=== PATIENT | male | born 1955 | race Caucasian/White ===

== ENCOUNTER → 2016-12-20 | Outpatient (REF) | payer OTHER ==
[2016-12-21 06:17] LABS: MEAN CORPUSCULAR HEMOGLOBIN 32.1 pg (27.0-33.0); MEAN CORPUSCULAR HGB CONC 34.7 g/dl (32.0-36.5); MEAN CORPUSCULAR VOLUME 92.7 fl (80.0-96.0); RED CELL DISTRIBUTION WIDTH 12.8 % (11.5-14.5); WHITE BLOOD COUNT 5.2 K/mm3 (4.0-10.0)
== END ==
LOC: M LAB REF 16:19
PROVIDERS: ATTEND Internal Medicine Medical Oncology
DX: D69.6 Thrombocytopenia, unspecified (principal); C95.90 Leukemia, unspecified not having achieved remission

== ENCOUNTER → 2017-01-09 | Outpatient (CLI) | payer BC, OTHER ==
--- NOTE | 2017-01-09 09:02 | REP ---
Complete abdominal sonography: History: Thrombocytopenia. Question hepatosplenomegaly. No comparison abdominal imaging. Findings: Scanning through right upper quadrant of the abdomen demonstrates poor insonation and increased echogenicity in a mildly prominent size liver consistent with fatty infiltration. The craniocaudal span of the liver is 16.6 cm in the mid clavicular line which is at the upper range of normal. No focal liver lesion is seen. Common bile duct is normal measuring 0.3 cm in greatest diameter. The gallbladder shows no evidence of stone , polyp or sludge. The pancreas is obscured by abdominal gas. No free fluid is seen. A normal caliber aorta is seen measuring 2.5 cm in AP dimension. Scanning of the left upper quadrant of the abdomen demonstrates homogeneous spleen measuring 11.9 x 4.6 x 11.5 cm. This is at the upper range of normal as well. No focal splenic lesion is seen. Renal cortical echogenicity pattern is normal and renal contours are smooth. No mass, cyst or calculus is seen on either side. The right kidney measures 11.1 x 6.5 x 4.2 cm. Left renal dimensions are 11.3 x 5.8 x 5.2 cm. Impression: Borderline liver and spleen size. Diffuse fatty infiltration of the liver. Otherwise negative. Signed by Maik Diamond MD 01/09/2017 12:16 P
== END ==
LOC: M RAD 07:26
PROVIDERS: ATTEND Internal Medicine Medical Oncology
DX: D69.6 Thrombocytopenia, unspecified (principal); K76.0 Fatty (change of) liver, not elsewhere classified; R16.0 Hepatomegaly, not elsewhere classified

== ENCOUNTER → 2017-07-26 | Outpatient (REF) | payer OTHER | LOC: M SFHCCLAY 08:07 | PROVIDERS: ATTEND Family Medicine | DX: N40.1 Benign prostatic hyperplasia with lower urinary tract symptoms (principal); E78.5 Hyperlipidemia, unspecified; Z53.9 Procedure and treatment not carried out, unspecified reason ==

== ENCOUNTER → 2017-08-23 | Outpatient (REF) | payer OTHER ==
[2017-08-23 12:12] LABS: ALBUMIN 3.9 GM/DL (3.2-5.2); ALBUMIN/GLOBULIN RATIO 1.34 (1.00-1.93); ALKALINE PHOSPHATASE 74 U/L (45-117); ALT/SGPT 38 U/L (12-78); ANION GAP 7 MEQ/L (8-16); AST/SGOT 20 U/L (15-37); BILIRUBIN,TOTAL 0.6 MG/DL (0.2-1.0); BLOOD UREA NITROGEN 19 MG/DL (7-18); CALCIUM LEVEL 8.5 MG/DL (8.8-10.2); CARBON DIOXIDE LEVEL 29 MEQ/L (21-32); CHLORIDE LEVEL 105 MEQ/L (98-107); CHOLESTEROL LEVEL 185 MG/DL (<200); CREATININE FOR GFR 0.94 MG/DL (0.70-1.30); GLOMERULAR FILTRATION RATE > 60.0 (>49); GLUCOSE, FASTING 113 MG/DL (80-110); POTASSIUM SERUM 4.3 MEQ/L (3.5-5.1); SODIUM LEVEL 141 MEQ/L (136-145); TOTAL PROTEIN 6.8 GM/DL (6.4-8.2); TRIGLYCERIDES LEVEL 90 MG/DL (<150)
== END ==
LOC: M SFHCCLAY 06:58
PROVIDERS: ATTEND Family Medicine
DX: N40.1 Benign prostatic hyperplasia with lower urinary tract symptoms (principal); E78.5 Hyperlipidemia, unspecified

== ENCOUNTER → 2017-09-12 | Outpatient (CLI) | payer BC, OTHER ==
--- NOTE | 2017-09-15 22:16 | SLEEPCENT ---
DATE OF PROCEDURE: 09/12/2017 REFERRING PHYSICIAN: Felecia Olmedo Nocturnal polysomnography was performed for evaluation of sleep physiology in this patient with a history of excessive somnolence and nonrestorative sleep. 6 hours and 27 minutes of data were reviewed. There were 316 minutes of sleep identified. Sleep latency was normal at 11 minutes. Rapid eye movement (REM) latency was short at 46 minutes. Sleep architecture was fair with four REM periods appreciated. Overall sleep efficiency was 84%. The patient's electrocardiogram showed a sinus rhythm with an average heart rate of 64 beats per minute. Rate variability was seen surrounding respiratory events which ranged 50 to 80 beats per minute. EEG showed normal waveforms for awake and sleep. There were 120 respiratory events identified of 10 seconds in duration or greater for an apnea/hypopnea index of 22.7. The events were primarily obstructive, not exclusive to sleep stage nor body posture. Arousals from respiratory events occurred 11.2 times per hour and oxygen desaturations were seen into the 70s. There was some activity in the limb EMG, but limb movement arousals occurred only 4.4 times per hour. IMPRESSION: Obstructive sleep apnea syndrome (G47.33). Apnea/hypopnea index 22.7. Desaturations into the 70s. RECOMMENDATION: The patient should be encouraged to return to the sleep disorder center for pressure therapy. In the interim, alcohol and sedative avoidance should be practiced and caution exercised during the operation of motor vehicles.
== END ==
LOC: M SLEEP 19:36
PROVIDERS: ATTEND Nurse Practitioner Adult Health
DX: G47.30 Sleep apnea, unspecified (principal)

== ENCOUNTER → 2017-10-02 | Outpatient (CLI) | payer BC, OTHER | LOC: M LAB 14:42 | PROVIDERS: ATTEND Ophthalmology | DX: H02.831 Dermatochalasis of right upper eyelid (principal) ==

== ENCOUNTER → 2017-10-16 | Outpatient (CLI) | payer BC, OTHER ==
--- NOTE | 2017-10-19 21:55 | SLEEPCENT ---
DATE: 10/16/2017 ORDERING PROVIDER: Felecia Olmedo NP Nocturnal polysomnography was performed for the titration of pressure therapy in this patient with obstructive sleep apnea syndrome. Apnea-hypopnea index of 22. For testing a ResMed Quattro Air Fit N20 nasal mask of medium size was used. 4 cm of water pressure were initially applied to the circuit and the lights were extinguished. 6 hours and 9 minutes of data were reviewed. There were 204 minutes of sleep identified. Sleep latency was prolonged at 18 minutes. Rapid eye movement (REM) latency was short at 44 minutes. Sleep architecture improved with the application of pressure therapy. Overall sleep efficiency was 56%. Patient's EKG showed a sinus rhythm with an average heart rate of 68 beats per minute. EEG showed fairly normal wave forms for wake and sleep. Respiratory events were fairly well palliated with CPAP at a pressure of +7, however some hypoventilatory oxygen desaturations were seen late in the study with saturations falling at the upper 80s. Patient woke shortly after 3 am and was unable to resume sleep limiting the time of testing. IMPRESSION: Obstructive sleep apnea syndrome (G47.33). RECOMMENDATIONS: Nightly use of pressure therapy 7 cm of water would be reasonable. Followup with nocturnal oximetry should also be considered given the desaturations on that pressure later in the study as the patient may require supplemental oxygen in addition to pressure therapy.
== END ==
LOC: M SLEEP 19:47
PROVIDERS: ATTEND Nurse Practitioner Adult Health
DX: G47.33 Obstructive sleep apnea (adult) (pediatric) (principal)

== ENCOUNTER → 2018-01-10 | Outpatient (REF) | payer OTHER ==
[2018-01-10 11:35] LABS: HEMATOCRIT 44.8 % (42.0-52.0); HEMOGLOBIN 14.8 g/dl (14.0-18.0); MEAN CORPUSCULAR HEMOGLOBIN 31.2 pg (27.0-33.0); MEAN CORPUSCULAR VOLUME 94.5 fl (80.0-96.0); PLATELET COUNT, AUTOMATED 105 10^3/uL (150-450); RED BLOOD COUNT 4.74 10^6/uL (4.30-6.10); RED CELL DISTRIBUTION WIDTH 12.9 % (11.5-14.5); WHITE BLOOD COUNT 6.3 10^3/uL (4.0-10.0)
[2018-01-10 12:12] LABS: ALBUMIN 3.8 GM/DL (3.2-5.2); ALBUMIN/GLOBULIN RATIO 1.31 (1.00-1.93); ALKALINE PHOSPHATASE 64 U/L (45-117); ALT/SGPT 37 U/L (12-78); ANION GAP 4 MEQ/L (8-16); AST/SGOT 18 U/L (7-37); BILIRUBIN,TOTAL 0.4 MG/DL (0.2-1.0); BLOOD UREA NITROGEN 20 MG/DL (7-18); CALCIUM LEVEL 8.4 MG/DL (8.8-10.2); CARBON DIOXIDE LEVEL 30 MEQ/L (21-32); CHLORIDE LEVEL 109 MEQ/L (98-107); CHOLESTEROL LEVEL 159 MG/DL (<200); CHOLESTEROL RISK RATIO 3.456 (<5); CREATININE FOR GFR 0.91 MG/DL (0.70-1.30); GLOMERULAR FILTRATION RATE > 60.0 (>49); GLUCOSE, FASTING 106 MG/DL (70-100); HDL CHOLESTEROL 46 MG/DL (>40); LDL CHOLESTEROL 95.6 MG/DL (<100); NON-HDL-C 113 MG/DL; POTASSIUM SERUM 4.2 MEQ/L (3.5-5.1); SODIUM LEVEL 143 MEQ/L (136-145); TOTAL PROTEIN 6.7 GM/DL (6.4-8.2); TRIGLYCERIDES LEVEL 87 MG/DL (<150)
== END ==
LOC: M SFHCCLAY 07:14
DX: E78.00 Pure hypercholesterolemia, unspecified (principal); K21.9 Gastro-esophageal reflux disease without esophagitis; E78.5 Hyperlipidemia, unspecified; N40.1 Benign prostatic hyperplasia with lower urinary tract symptoms

== ENCOUNTER → 2018-02-16 | Outpatient (CLI) | payer BC, OTHER | LOC: M EKG 10:46 | DX: Z01.810 Encounter for preprocedural cardiovascular examination (principal); M72.0 Palmar fascial fibromatosis [Dupuytren] ==

== ENCOUNTER → 2018-09-11 | Outpatient (CLI) | payer MEDICARE, BC | LOC: M CLY 14:36 | DX: M19.071 Primary osteoarthritis, right ankle and foot (principal); M25.774 Osteophyte, right foot; M85.871 Other specified disorders of bone density and structure, right ankle and foot; M72.2 Plantar fascial fibromatosis | CPT/HCPCS: 73630; G0463 ==

== ENCOUNTER → 2019-01-07 | Outpatient (REF) | payer MEDICARE, OTHER ==
[2019-01-07 12:08] LABS: ALBUMIN 3.7 GM/DL (3.2-5.2); ALT/SGPT 40 U/L (12-78); BILIRUBIN,TOTAL 0.5 MG/DL (0.2-1.0); BLOOD UREA NITROGEN 20 MG/DL (7-18); CALCIUM LEVEL 8.4 MG/DL (8.8-10.2); CARBON DIOXIDE LEVEL 30 MEQ/L (21-32); CHLORIDE LEVEL 105 MEQ/L (98-107); CHOLESTEROL LEVEL 154 MG/DL (<200); CHOLESTEROL RISK RATIO 3.666 (<5); CREATININE FOR GFR 0.99 MG/DL (0.70-1.30); GLOMERULAR FILTRATION RATE > 60.0 (>49); GLUCOSE, FASTING 113 MG/DL (70-100); HDL CHOLESTEROL 42 MG/DL (>40); LDL CHOLESTEROL 94 MG/DL (<100); NON-HDL-C 112 MG/DL; POTASSIUM SERUM 4.2 MEQ/L (3.5-5.1); SODIUM LEVEL 141 MEQ/L (136-145); TOTAL PROTEIN 6.6 GM/DL (6.4-8.2); TRIGLYCERIDES LEVEL 92 MG/DL (<150)
== END ==
LOC: M SFHCCLAY 07:21
PROVIDERS: ATTEND Family Medicine
DX: E78.5 Hyperlipidemia, unspecified (principal)

== ENCOUNTER → 2019-08-16 | Outpatient (REF) | payer MEDICARE, OTHER ==
[~2019-08-16] MED LIST: ASPI81TA26 PO; BUPR300T34 PO; OCUVTAB PO; OMEP40CA97 PO; PRAV40TA2 PO; SERT50TA29 PO; SILD100T PO; VITA100067 PO
[2019-08-16 11:48] LABS: ALBUMIN 3.8 GM/DL (3.2-5.2); ALT/SGPT 28 U/L (12-78); BILIRUBIN,TOTAL 0.8 MG/DL (0.2-1.0); BLOOD UREA NITROGEN 15 MG/DL (7-18); CALCIUM LEVEL 8.3 MG/DL (8.8-10.2); CARBON DIOXIDE LEVEL 30 MEQ/L (21-32); CHLORIDE LEVEL 107 MEQ/L (98-107); CHOLESTEROL LEVEL 143 MG/DL (<200); CHOLESTEROL RISK RATIO 3.177 (<5); GLOMERULAR FILTRATION RATE > 60.0 (>49); GLUCOSE, FASTING 101 MG/DL (70-100); HDL CHOLESTEROL 45 MG/DL (>40); LDL CHOLESTEROL 83 MG/DL (<100); NON-HDL-C 98 MG/DL; POTASSIUM SERUM 4.3 MEQ/L (3.5-5.1); SODIUM LEVEL 141 MEQ/L (136-145); TOTAL PROTEIN 6.6 GM/DL (6.4-8.2); TRIGLYCERIDES LEVEL 74 MG/DL (<150)
== END ==
LOC: M SFHCCLAY 06:58
PROVIDERS: ATTEND Family Medicine
DX: E78.5 Hyperlipidemia, unspecified (principal); Z12.5 Encounter for screening for malignant neoplasm of prostate
CPT/HCPCS: 80053; 80061; G0103

== ENCOUNTER 2019-10-21 08:35 | Emergency (ER) | payer MEDICARE, BC, OTHER ==
[~2019-10-21] VITALS: Ht 172.7 cm; Wt 101.8 kg
[2019-10-21] MEDS ORDERED: ASPIRIN 81 MG CHEW TABLET PO ONE (08:45)
[2019-10-21 09:14] LABS: BASO # 0.1 10^3/uL (0.0-0.2); BASO % 0.8 % (0.0-1.0); EOS # 0.2 10^3/uL (0.0-0.5); EOS % 2.4 % (0.0-3.0); HEMOGLOBIN 14.9 g/dl (13.5-17.5); LYMPH # 0.8 10^3/uL (1.5-5.0); LYMPH % 13.1 % (24.0-44.0); MEAN CORPUSCULAR HEMOGLOBIN 31.5 pg (27.0-33.0); MEAN CORPUSCULAR HGB CONC 32.4 g/dl (32.0-36.5); MEAN CORPUSCULAR VOLUME 97.3 fl (80.0-96.0); MONO # 0.6 10^3/uL (0.0-0.8); MONO % 9.1 % (0.0-5.0); NEUTROPHILS # 4.7 10^3/uL (1.5-8.5); NEUTROPHILS % 73.3 % (36.0-66.0); PLATELET COUNT, AUTOMATED 108 10^3/uL (150-450); RED BLOOD COUNT 4.73 10^6/uL (4.30-6.10); WHITE BLOOD COUNT 6.3 10^3/uL (4.0-10.0)
[2019-10-21] MEDS ORDERED: SERT-138 (09:15)
--- NOTE | 2019-10-21 09:16 | REP ---
Clinical: Chest pain . Comparison: None . Findings: The mediastinum and cardiac silhouette are stable and within normal limits for portable technique. The lung david are clear without acute consolidation, effusion, or pneumothorax. Skeletal structures are intact. Impression: No acute cardiopulmonary process appreciated. Electronically Signed by Robin Dorantes MD 10/21/2019 09:07 A
[2019-10-21] MEDS ORDERED: TRIA1CR80 TOP (09:19)
[2019-10-21] MEDS ORDERED: TAMS1CAP17 (09:19)
[2019-10-21] MEDS ORDERED: NAPR220C14 PO (09:19)
[2019-10-21] MEDS ORDERED: ISOVUE-370 76% 100ML VIAL (Q9967) As Ordered ONE (09:20)
[2019-10-21] MEDS ORDERED: ICAPTAB PO (09:20)
[2019-10-21 09:25] LABS: INR 1.05; PROTHROMBIN TIME 13.4 SECONDS (11.8-14.0)
[2019-10-21 09:49] LABS: ALBUMIN 3.6 GM/DL (3.2-5.2); ALT/SGPT 28 U/L (12-78); BILIRUBIN,DIRECT 0.2 MG/DL (0.0-0.2); BILIRUBIN,TOTAL 0.6 MG/DL (0.2-1.0); BLOOD UREA NITROGEN 19 MG/DL (7-18); CALCIUM LEVEL 8.6 MG/DL (8.8-10.2); CARBON DIOXIDE LEVEL 27 MEQ/L (21-32); CHLORIDE LEVEL 110 MEQ/L (98-107); CK-MB VALUE MASS 2.7 NG/ML (<3.6); CPK CREATINE PHOSPHOKINASE 137 U/L (39-308); CREATININE FOR GFR 0.98 MG/DL (0.70-1.30); FREE T4 0.79 NG/DL (0.76-1.46); GLOMERULAR FILTRATION RATE > 60.0 (>49); GLUCOSE, FASTING 103 MG/DL (70-100); LIPASE 53 U/L (73-393); MB/CK RELATIVE INDEX 1.97 (< OR =4); SODIUM LEVEL 142 MEQ/L (136-145); THYROID STIMULATING HORMONE 0.992 uIU/ML (0.358-3.740); TOTAL PROTEIN 6.8 GM/DL (6.4-8.2); TROPONIN I < 0.02 NG/ML (< 0.10)
--- NOTE | 2019-10-21 09:57 | REP ---
Clinical: Acute chest pain. Technique: Axial contrast enhanced images from the thoracic inlet to the upper abdomen using 100 ml Isovue 370 intravenous contrast material with coronal and sagittal re-formations. Findings: Satisfactory enhancement of the pulmonary vasculature is achieved and no filling defects are identified to suggest pulmonary embolus. Thoracic aorta is normal caliber without aneurysm or dissection. Heart and pericardium are normal. Incidental atherosclerotic changes to the thoracic aorta and coronary arteries noted. Bilateral lung david are well aerated and clear without acute pulmonary parenchymal consolidation or atelectasis. No nodule or mass lesion. No pleural effusion/reaction. No pneumothorax. No adenopathy. Impression: No evidence for pulmonary embolus. No acute pleuroparenchymal or mediastinal process. Electronically Signed by Robin Dorantes MD 10/21/2019 09:48 A
[2019-10-21] MEDS ORDERED: HEPARIN DRIP 25,000 UNITS in IV 1 EA IV SCH (10:35)
[2019-10-21] MEDS ORDERED: HEPARIN SOD (PORCINE) 5000 UNITS/ML VIAL IV ONE (10:45)
[2019-10-21] MEDS ORDERED: CLOPIDOGREL 300 MG TAB (PLAVIX) PO ONE (11:00)
[2019-10-21 11:40] VITALS: BP 122/63
--- NOTE | 2019-10-21 19:37 | ECGEPIP ---
[facility] - ED Test Date: 2019-10-21 Pat Name: LISA DUFFY Department: Room: - Gender: Male Geriatric Case Manager: : 1955 Requested By: Jacey Burgos Order Number: [id number] Reading MD: Enoc Fernandez Measurements Intervals [place] Rate: 63 P: 60 UT: 120 QRS: 48 QRSD: 81 T: 35 QT: 396 QTc: 406 Interpretive Statements SINUS RHYTHM WITH OCCASIONAL VENTRICULAR PREMATURE COMPLEXES POSSIBLE LEFT ATRIAL ENLARGEMENT BASELINE ARTIFACT AFFECTS INTERPRETATION SIMILAR TO 02/16/18 Electronically Signed on 10-21-2019 19:37:49 EST by Enoc Fernandez
== END 2019-10-21 11:45 | disposition short-term general hospital (02) ==
LOC: M ED 08:35 → EDBD 08:35 → M ED 11:45
DX: I20.0 Unstable angina (principal); E78.5 Hyperlipidemia, unspecified; Z79.899 Other long term (current) drug therapy; Z79.82 Long term (current) use of aspirin; Z88.5 Allergy status to narcotic agent; Z88.8 Allergy status to other drugs, medicaments and biological substances; Z87.891 Personal history of nicotine dependence
CPT/HCPCS: 71045; 71275; 80047; 80048; 80076; 82550; 82553; 83690; 84439; 84443; 84484; 85025; 85610; 85730; 93005; 93041; 94760; 96374; 99285; Q9967

== ENCOUNTER → 2019-11-07 | Outpatient (CLI) | payer MEDICARE, BC, OTHER ==
[~2019-11-07] MED LIST changes: -BUPR300T34 PO; +BUPR300T92 PO; +E-Z-GAS II EFFERVESCENT PACKET (SODIUM BICARB./CITRIC ACID/SIMETHICONE) As Ordered ONE; +E-Z-HD 98% w/w 340GM SUSP BTL As Ordered ONE; +E-Z-PAQUE 96% w/w SUSP 176GM BTL As Ordered ONE; +ICAPTAB PO; +NAPR220C14 PO; +SERT-138; +TAMS1CAP17; +TRIA1CR80 TOP
--- NOTE | 2019-11-07 18:38 | REP ---
Upper GI air contrast The procedure was performed under the direct supervision of Dr. Diamond. The images were reviewed with Dr. Diamond The complaint specialist film shows no organomegaly or pathological masses. The intestinal gas pattern is non-specific. Liquid barium and gas producing crystals were given in the erect position as well as liquid barium in the prone oblique position in order to perform a double contrast upper GI examination. The oral and pharyngeal stages of deglutition are unremarkable. Esophageal transport is prompt and efficient and there is no esophagitis, stricture, mucosal ring or hiatal hernia. There is gastroesophageal reflux demonstrated to above the level of the clarence. The stomach padilla are normally outlined . The rugal folds are smooth and regular. There is no gastritis neoplasm or ulcer disease. The duodenal padilla are normally outlined . The mucosal folds are smooth and regular. There is no duodenitis pancreatitis peptic ulcer disease or neoplasm. The visualized portion of the proximal small bowel appears normal in course and caliber. Impression: There is gastroesophageal reflux demonstrated to above the level of the clarence. Otherwise, unremarkable double contrast upper GI examination. 2 minutes of fluoro time was utilized for this procedure. Electronically Signed by BARBARA Saab 11/07/2019 05:51 P Electronically Signed by Maik Diamond MD 11/07/2019 06:26 P
== END ==
LOC: M RAD 09:49
PROVIDERS: ATTEND Family Medicine
DX: R07.9 Chest pain, unspecified (principal)

== ENCOUNTER → 2019-11-25 | Outpatient (CLI) | payer MEDICARE, BC, OTHER ==
[~2019-11-25] MED LIST changes: -E-Z-GAS II EFFERVESCENT PACKET (SODIUM BICARB./CITRIC ACID/SIMETHICONE) As Ordered ONE; -E-Z-HD 98% w/w 340GM SUSP BTL As Ordered ONE; -E-Z-PAQUE 96% w/w SUSP 176GM BTL As Ordered ONE
[2019-11-27 14:07] LABS: PSA % FREE 18.4 % (.); PSA FREE 0.92 ng/mL
== END ==
LOC: M PLALAB 15:05
PROVIDERS: ATTEND Nurse Practitioner Women's Health
DX: R97.20 Elevated prostate specific antigen [PSA] (principal)
CPT/HCPCS: 36415; 51798; 84154; G0463

== ENCOUNTER → 2019-12-03 | Outpatient (REF) | payer MEDICARE, OTHER ==
[2019-12-03 12:50] LABS: BASO % 0.7 % (0.0-1.0); EOS # 0.2 10^3/uL (0.0-0.5); EOS % 3.2 % (0.0-3.0); HEMATOCRIT 44.8 % (42.0-52.0); HEMOGLOBIN 14.7 g/dl (13.5-17.5); LYMPH # 1.1 10^3/uL (1.5-5.0); LYMPH % 18.3 % (24.0-44.0); MEAN CORPUSCULAR HGB CONC 32.8 g/dl (32.0-36.5); MEAN CORPUSCULAR VOLUME 97.4 fl (80.0-96.0); MONO # 0.6 10^3/uL (0.0-0.8); MONO % 9.7 % (0.0-5.0); NEUTROPHILS # 3.9 10^3/uL (1.5-8.5); NEUTROPHILS % 66.7 % (36.0-66.0); PLATELET COUNT, AUTOMATED 116 10^3/uL (150-450); WHITE BLOOD COUNT 5.9 10^3/uL (4.0-10.0)
[2019-12-03 13:20] LABS: ALBUMIN 3.9 GM/DL (3.2-5.2); ALT/SGPT 24 U/L (12-78); BILIRUBIN,TOTAL 0.5 MG/DL (0.2-1.0); BLOOD UREA NITROGEN 20 MG/DL (7-18); CALCIUM LEVEL 8.4 MG/DL (8.8-10.2); CARBON DIOXIDE LEVEL 30 MEQ/L (21-32); CHLORIDE LEVEL 108 MEQ/L (98-107); CHOLESTEROL LEVEL 168 MG/DL (<200); CHOLESTEROL RISK RATIO 3.733 (<5); CREATININE FOR GFR 1.02 MG/DL (0.70-1.30); GLOMERULAR FILTRATION RATE > 60.0 (>49); GLUCOSE, FASTING 104 MG/DL (70-100); HDL CHOLESTEROL 45 MG/DL (>40); LDL CHOLESTEROL 107 MG/DL (<100); NON-HDL-C 123 MG/DL; POTASSIUM SERUM 4.1 MEQ/L (3.5-5.1); SODIUM LEVEL 143 MEQ/L (136-145); TOTAL PROTEIN 6.7 GM/DL (6.4-8.2); TRIGLYCERIDES LEVEL 82 MG/DL (<150)
== END ==
LOC: M SFHCCLAY 07:10
PROVIDERS: ATTEND Family Medicine
DX: K21.9 Gastro-esophageal reflux disease without esophagitis (principal); E78.5 Hyperlipidemia, unspecified; D69.6 Thrombocytopenia, unspecified; D64.9 Anemia, unspecified

== ENCOUNTER 2020-01-07 09:41 | Day surgery (SDC) | payer MEDICARE, BC, OTHER ==
[~2020-01-07] VITALS: Ht 170.2 cm; Wt 105.2 kg
[~2020-01-07 09:41] MED LIST changes: +NS 1,000 ML IV ONE; +PANT40TA3 PO; -SERT-138; +SERT-138 PO; +SUCR1TA PO; -TAMS1CAP17; +TAMS1CAP17 PO; +VITA1CAP25 PO
[2020-01-07] MEDS ORDERED: LIDOCAINE 2% INJ 100 MG/5 ML SDV (FOR ANES.) As Ordered ONE (10:13)
[2020-01-07] MEDS ORDERED: propofoL 200 MG/20 ML VIAL As Ordered ONE (10:13)
--- NOTE | 2020-01-07 11:41 | ROOR ---
Patient Name: Chandra Wagner Procedure Date: 01/07/2020 11:06 AM Date of : 1955 Age: 64 Room: [facility] Gender: Male Note Status: Finalized Procedure: Upper GI endoscopy Indications: Heartburn, Suspected gastro-esophageal reflux disease Providers: Sam Sullivan MD Referring MD: Donte Flaherty MD Requesting Provider: Medicines: Monitored Anesthesia Care Complications: No immediate complications. Procedure: Pre-Anesthesia Assessment: - Prior to the procedure, a History and Physical was performed, and patient medications and allergies were reviewed. The patient is competent. The risks and benefits of the procedure and the sedation options and risks were discussed with the patient. All questions were answered and informed consent was obtained. Patient identification and proposed procedure were verified by the physician, the nurse and the anesthesiologist in the procedure room. Mental Status Examination: alert and oriented. Airway Examination: normal oropharyngeal airway and neck mobility. Respiratory Examination: clear to auscultation. CV Examination: normal. Prophylactic Antibiotics: The patient does not require prophylactic antibiotics. Prior Anticoagulants: The patient has taken no previous anticoagulant or antiplatelet agents. ASA Grade Assessment: II - A patient with mild systemic disease. After reviewing the risks and benefits, the patient was deemed in satisfactory condition to undergo the procedure. The anesthesia plan was to use monitored anesthesia care (MAC). Immediately prior to administration of medications, the patient was re-assessed for adequacy to receive sedatives. The heart rate, respiratory rate, oxygen saturations, blood pressure, adequacy of pulmonary ventilation, and response to care were monitored throughout the procedure. The physical status of the patient was re-assessed after the procedure. The Endoscope was introduced through the mouth, and advanced to the second part of duodenum. The upper GI endoscopy was accomplished without difficulty. The patient tolerated the procedure well. Findings: One tongue of salmon-colored mucosa was present from 43 to 45 cm. No other visible abnormalities were present. The maximum longitudinal extent of these esophageal mucosal changes was 2 cm in length. Biopsies were taken with a cold forceps for histology. Verification of patient identification for the specimen was done by the physician and nurse using the patient's name, date and medical record number. There is no endoscopic evidence of stenosis, stricture or ulcerations in the proximal esophagus and in the mid esophagus. Biopsies were obtained from the proximal and distal esophagus with cold forceps for histology of suspected eosinophilic esophagitis. Scattered moderate inflammation characterized by erythema, friability and granularity was found in the gastric body and in the gastric antrum. Biopsies were taken with a cold forceps for histology. Biopsies were taken with a cold forceps for Helicobacter pylori testing. The duodenal bulb and second portion of the duodenum were normal. Impression: - [place]-colored mucosa suspicious for short-segment Red's esophagus. Biopsied. - Gastritis. Biopsied. - Normal duodenal bulb and second portion of the duodenum. Recommendation: - Patient has a contact number available for emergencies. The signs and symptoms of potential delayed complications were discussed with the patient. Return to normal activities tomorrow. Written discharge instructions were provided to the patient. - Resume previous diet. - Continue present medications. - Await pathology results. - Telephone GI clinic for pathology results in 2 weeks. - Perform routine esophageal manometry if symptoms persist. - Return to primary care physician. Sam Sullivan MD Sam Sullivan MD 01/07/2020 11:41:13 AM Electronically signed by Sam Sullivan MD Number of Addenda: 0 Note Initiated On: 01/07/2020 11:06 AM Estimated Blood Loss: Estimated blood loss was minimal.
[2020-01-07 12:16] VITALS: BP 113/65
== END 2020-01-07 12:10 | disposition home or self-care (01) ==
LOC: M OPP 09:41
PROVIDERS: ATTEND Internal Medicine Gastroenterology
DX: R12 Heartburn (principal); K22.8 Other specified diseases of esophagus; K29.70 Gastritis, unspecified, without bleeding; E78.5 Hyperlipidemia, unspecified; K21.9 Gastro-esophageal reflux disease without esophagitis; D69.6 Thrombocytopenia, unspecified; F41.9 Anxiety disorder, unspecified; R06.83 Snoring; G47.30 Sleep apnea, unspecified; N40.1 Benign prostatic hyperplasia with lower urinary tract symptoms; Z87.891 Personal history of nicotine dependence; Z88.5 Allergy status to narcotic agent; Z79.82 Long term (current) use of aspirin; Z79.899 Other long term (current) drug therapy

== ENCOUNTER → 2020-01-17 | Outpatient (CLI) | payer MEDICARE, BC, OTHER ==
[~2020-01-17] MED LIST changes: -NS 1,000 ML IV ONE
[2020-01-17 11:38] LABS: BASO % 0.6 % (0.0-1.0); EOS # 0.2 10^3/uL (0.0-0.5); EOS % 2.8 % (0.0-3.0); HEMATOCRIT 46.8 % (42.0-52.0); HEMOGLOBIN 15.4 g/dl (13.5-17.5); LYMPH # 1.4 10^3/uL (1.5-5.0); LYMPH % 22.2 % (24.0-44.0); MEAN CORPUSCULAR HEMOGLOBIN 31.4 pg (27.0-33.0); MEAN CORPUSCULAR HGB CONC 32.9 g/dl (32.0-36.5); MEAN CORPUSCULAR VOLUME 95.3 fl (80.0-96.0); MONO # 0.7 10^3/uL (0.0-0.8); MONO % 10.3 % (0.0-5.0); NEUTROPHILS % 63.5 % (36.0-66.0); PLATELET COUNT, AUTOMATED 118 10^3/uL (150-450); RED BLOOD COUNT 4.91 10^6/uL (4.30-6.10); WHITE BLOOD COUNT 6.3 10^3/uL (4.0-10.0)
[2020-01-17 12:07] LABS: ALBUMIN 3.8 GM/DL (3.2-5.2); ALT/SGPT 34 U/L (12-78); BILIRUBIN,DIRECT 0.2 MG/DL (0.0-0.2); BILIRUBIN,TOTAL 0.7 MG/DL (0.2-1.0); BLOOD UREA NITROGEN 14 MG/DL (7-18); CREATININE FOR GFR 0.95 MG/DL (0.70-1.30); GLOMERULAR FILTRATION RATE > 60.0 (>49); TOTAL PROTEIN 6.8 GM/DL (6.4-8.2)
[2020-01-17 13:46] LABS: CLOSTRIDIUM DIFFICILE PCR NEGATIVE (NEGATIVE)
== END ==
LOC: M LAB 10:32
PROVIDERS: ATTEND Internal Medicine Gastroenterology
DX: K21.9 Gastro-esophageal reflux disease without esophagitis (principal)

== ENCOUNTER → 2020-01-27 | Outpatient (CLI) | payer MEDICARE, BC, OTHER ==
[~2020-01-27] MED LIST changes: +GASTROGRAFIN SOLUTION 30ML (Q9963) As Ordered ONE; +ISOVUE-370 76% 100ML VIAL (Q9967) As Ordered ONE
--- NOTE | 2020-01-27 13:39 | REP ---
REASON FOR EXAM: Weight loss and lower abdominal pain and diarrhea. COMPARISON: Abdominal CT none. CONTRAST: 100 mL Isovue 370. The lung bases are clear. The liver, gallbladder, spleen, pancreas, adrenal glands, and left kidney are unremarkable. Rising from the interpolar region of the right kidney there is a 4.5 cm size low density structure which has water density Hounsfield Unit readings and shows no evidence of calcification, septation, or contrast enhancement. The abdominal aorta and paraaortic regions are within normal limits. There is no intra-abdominal mass or adenopathy. The bowel loops and their mesenteries are within normal limits. There is no free fluid or free air. CT PELVIS: There is a large right inguinal ring extending into the right inguinal canal with a large amount of adipose tissue seen within it. There is no bowel within this region. There is no pelvic mass or adenopathy. There is no free fluid or free air. The pelvic bowel loops are within normal limits. Bone window technique throughout the examination show the osseous structures to be within normal limits for the patient's age. IMPRESSION: 1. There is a right renal cyst consistent with a Bosniak class 1 cyst as described above. 2. Large right inguinal ring and inguinal canal containing and increased amount of adipose. There is no bowel containing hernia, however, the finding needs to be correlated clinically. 3. Other findings as described above. Electronically Signed by Edgar Schuler DO 01/27/2020 02:10 P
== END ==
LOC: M RAD 11:26
PROVIDERS: ATTEND Physician Assistant Medical
DX: R63.4 Abnormal weight loss (principal); R10.30 Lower abdominal pain, unspecified; R19.7 Diarrhea, unspecified
CPT/HCPCS: 74177; Q9963; Q9967

== ENCOUNTER 2020-02-25 10:58 | Emergency (ER) | payer MEDICARE, BC, OTHER ==
[~2020-02-25] VITALS: Ht 172.7 cm; Wt 107.9 kg
[~2020-02-25 10:58] MED LIST changes: -GASTROGRAFIN SOLUTION 30ML (Q9963) As Ordered ONE; -ISOVUE-370 76% 100ML VIAL (Q9967) As Ordered ONE
[2020-02-25] MEDS ORDERED: FAMO1TAB11 (11:07)
[2020-02-25] MEDS ORDERED: DICY20TA11 OR (11:25)
[2020-02-25 11:33] LABS: APPEARANCE, URINE HAZY (CLEAR); BACTERIA, URINE AUTO NEGATIVE (NEGATIVE); BILIRUBIN, URINE AUTO NEGATIVE (NEGATIVE); BLOOD, URINE BLOOD NEGATIVE (NEGATIVE); COLOR, URINE AMBER (YELLOW); GLUCOSE, URINE (UA) AUTO NEGATIVE (NEGATIVE); KETONE, URINE AUTO TRACE mg/dL (NEGATIVE); LEUKOCYTE ESTERASE, URINE AUTO NEGATIVE (NEGATIVE); MUCUS, URINE SMALL (NEGATIVE); NITRITE, URINE AUTO NEGATIVE (NEGATIVE); PROTEIN, URINE AUTO NEGATIVE (NEGATIVE); RBC, URINE AUTO 1 /HPF (0-3); SPECIFIC GRAVITY URINE AUTO 1.025 (1.002-1.035); SQUAMOUS EPITHELIAL CELL UR AU 0 /HPF (0-6); WBC, URINE AUTO 1 /HPF (0-3)
[2020-02-25 12:02] LABS: BASO # 0.1 10^3/uL (0.0-0.2); BASO % 1.2 % (0.0-1.0); EOS # 0.1 10^3/uL (0.0-0.5); EOS % 1.9 % (0.0-3.0); HEMATOCRIT 45.7 % (42.0-52.0); HEMOGLOBIN 15.5 g/dl (13.5-17.5); LYMPH # 0.6 10^3/uL (1.5-5.0); LYMPH % 15.3 % (24.0-44.0); MEAN CORPUSCULAR HEMOGLOBIN 31.7 pg (27.0-33.0); MEAN CORPUSCULAR HGB CONC 33.9 g/dl (32.0-36.5); MEAN CORPUSCULAR VOLUME 93.5 fl (80.0-96.0); MONO # 0.7 10^3/uL (0.0-0.8); MONO % 17.4 % (0.0-5.0); NEUTROPHILS # 2.6 10^3/uL (1.5-8.5); NEUTROPHILS % 62.3 % (36.0-66.0); PLATELET COUNT, AUTOMATED 105 10^3/uL (150-450); RED BLOOD COUNT 4.89 10^6/uL (4.30-6.10); WHITE BLOOD COUNT 4.2 10^3/uL (4.0-10.0)
[2020-02-25 12:29] LABS: BLOOD UREA NITROGEN 17 MG/DL (7-18); CALCIUM LEVEL 8.8 MG/DL (8.8-10.2); CARBON DIOXIDE LEVEL 28 MEQ/L (21-32); CHLORIDE LEVEL 107 MEQ/L (98-107); CREATININE FOR GFR 0.99 MG/DL (0.70-1.30); GLOMERULAR FILTRATION RATE > 60.0 (>49); GLUCOSE, FASTING 104 MG/DL (70-100); POTASSIUM SERUM 4.3 MEQ/L (3.5-5.1); SODIUM LEVEL 138 MEQ/L (136-145)
[2020-02-25] MEDS ORDERED: METH1TAB40 PO (13:29)
[2020-02-25] MEDS ORDERED: NAPR-837 PO (13:29)
[2020-02-25 13:44] VITALS: BP 128/59
--- NOTE | 2020-02-25 14:27 | REP ---
RENAL ULTRASOUND: Real-time sonographic evaluation of the kidneys performed. The kidneys are normal in size and echotexture, right kidney measuring 12.3 x 6.6 x 5.4 cm and left kidney 11.4 x 5.5 x 5.5 cm. There is no hydronephrosis bilaterally. A mildly complex cyst of the right kidney lower pole posteriorly measuring 4.4 x 3.8 x 5.4 cm, containing a few thin septations and mild internal echoes. Prostate is enlarged measuring 5.8 x 5.2 x 4.0 cm for a total volume of 63 mL. Urinary bladder is not well distended and not well evaluated, ureteral jets are not seen with Doppler color evaluation. IMPRESSION: No hydronephrosis or nephrolithiasis. Right renal cyst is mildly complex. Enlarged prostate. Electronically Signed by Michael Seymour MD 02/25/2020 03:22 P
== END 2020-02-25 13:49 | disposition home or self-care (01) ==
LOC: M ED 10:58
DX: M54.5 Low back pain (principal); N28.1 Cyst of kidney, acquired; N40.0 Benign prostatic hyperplasia without lower urinary tract symptoms; R35.0 Frequency of micturition; R51 Headache; G47.30 Sleep apnea, unspecified; F41.9 Anxiety disorder, unspecified; Z88.5 Allergy status to narcotic agent; Z88.8 Allergy status to other drugs, medicaments and biological substances; Z79.899 Other long term (current) drug therapy

== ENCOUNTER → 2020-03-11 | Outpatient (CLI) | payer MEDICARE, BC, OTHER ==
[~2020-03-11] MED LIST changes: +DICY20TA11 OR; +FAMO1TAB11; +METH1TAB40 PO; +NAPR-837 PO
--- NOTE | 2020-03-11 10:13 | REP ---
RIGHT UPPER QUADRANT ULTRASOUND: Real-time sonographic evaluation of right upper quadrant performed. Gallbladder demonstrates no evidence of intraluminal sludge or calculi, wall thickening, or pericholecystic fluid. There is no intrahepatic or extrahepatic biliary dilatation, common bile duct measuring 3 mm. Liver demonstrates diffuse increased echotexture compatible with diffuse fibrofatty infiltration. No gross liver or pancreatic mass is seen. Right kidney demonstrates no hydronephrosis with normal size 11.9 cm in length. There is a complex cyst in the mid aspect 5.2 x 3.5 x 4.8 cm with thin internal septations. No free fluid is seen. IMPRESSION: Diffuse fibrofatty infiltration of the liver. No gallstones or biliary dilatation. Mildly complex cyst right kidney. On recent CT of 01/27/2020, there was no internal enhancement or suspicious characteristics. Electronically Signed by Michael Seymour MD 03/11/2020 12:45 P
== END ==
LOC: M RAD 07:22
PROVIDERS: ATTEND Family Medicine
DX: K76.0 Fatty (change of) liver, not elsewhere classified (principal); Q61.02 Congenital multiple renal cysts; R10.9 Unspecified abdominal pain

== ENCOUNTER → 2020-04-02 | Outpatient (CLI) | payer MEDICARE, BC, OTHER | LOC: M LAB 08:05 | PROVIDERS: ATTEND Nurse Practitioner Women's Health | DX: R97.20 Elevated prostate specific antigen [PSA] (principal); Z85.46 Personal history of malignant neoplasm of prostate ==

== ENCOUNTER → 2020-06-08 | Outpatient (REF) | payer MEDICARE, OTHER ==
[~2020-06-08] MED LIST changes: +PANT40TA29 PO; -PANT40TA3 PO
[2020-07-21 13:11] LABS: ALT/SGPT 36 U/L (12-78); BILIRUBIN,TOTAL 0.3 MG/DL (0.2-1.0); BLOOD UREA NITROGEN 19 MG/DL (7-18); CALCIUM LEVEL 8.8 MG/DL (8.8-10.2); CARBON DIOXIDE LEVEL 31 MEQ/L (21-32); CHLORIDE LEVEL 104 MEQ/L (98-107); CHOLESTEROL LEVEL 168 MG/DL (<200); CREATININE FOR GFR 1.07 MG/DL (0.70-1.30); GLOMERULAR FILTRATION RATE > 60.0 (>49); GLUCOSE, FASTING 110 MG/DL (70-100); HDL CHOLESTEROL 52 MG/DL (>40); LDL CHOLESTEROL 97 MG/DL (<100); NON-HDL-C 116 MG/DL; POTASSIUM SERUM 4.2 MEQ/L (3.5-5.1); SODIUM LEVEL 141 MEQ/L (136-145); TOTAL PROTEIN 7.1 GM/DL (6.4-8.2); TRIGLYCERIDES LEVEL 95 MG/DL (<150)
== END ==
LOC: M LABDRAWC 09:06
PROVIDERS: ATTEND Family Medicine
DX: I10 Essential (primary) hypertension (principal); E78.3 Hyperchylomicronemia; Z12.5 Encounter for screening for malignant neoplasm of prostate
CPT/HCPCS: 36415; 80053; 80061; G0103

== ENCOUNTER 2020-07-28 15:31 | Emergency (ER) | payer MEDICARE, BC, OTHER ==
[~2020-07-28] VITALS: Ht 172.7 cm; Wt 109.6 kg
[2020-07-28] MEDS ORDERED: ASPIRIN 81 MG CHEW TABLET PO ONE (16:15)
[2020-07-28] MEDS ORDERED: ACETAMINOPHEN 325 MG TAB PO ONE (16:15)
[2020-07-28 16:17] LABS: BASO # 0.1 10^3/uL (0.0-0.2); BASO % 0.7 % (0.0-1.0); EOS # 0.2 10^3/uL (0.0-0.5); EOS % 2.7 % (0.0-3.0); HEMATOCRIT 44.5 % (42.0-52.0); HEMOGLOBIN 14.8 g/dl (13.5-17.5); LYMPH # 1.5 10^3/uL (1.5-5.0); LYMPH % 21.6 % (24.0-44.0); MEAN CORPUSCULAR HGB CONC 33.3 g/dl (32.0-36.5); MEAN CORPUSCULAR VOLUME 96.1 fl (80.0-96.0); MONO # 0.9 10^3/uL (0.0-0.8); NEUTROPHILS # 4.2 10^3/uL (1.5-8.5); NEUTROPHILS % 61.1 % (36.0-66.0); PLATELET COUNT, AUTOMATED 112 10^3/uL (150-450); RED BLOOD COUNT 4.63 10^6/uL (4.30-6.10); WHITE BLOOD COUNT 6.9 10^3/uL (4.0-10.0)
[2020-07-28 16:31] LABS: INR 0.92; PROTHROMBIN TIME 12.5 SECONDS (12.5-14.3)
[2020-07-28 16:32] LABS: PARTIAL THROMBOPLASTIN TIME 28.8 SECONDS (24.2-38.5)
--- NOTE | 2020-07-28 16:37 | REPVR ---
PROCEDURE INFORMATION: Exam: XR Chest, 1 View Exam date and time: 07/28/2020 4:02 PM Age: 65 years old Clinical indication: Shortness of breath; Additional info: Chest pain TECHNIQUE: Imaging protocol: XR of the chest Views: 1 view. COMPARISON: CR PORTABLE CHEST X-RAY 10/21/2019 9:00 AM FINDINGS: Lungs: Emphysematous change and mild interstitial prominence. Pleural space: No pleural effusion. Heart/Mediastinum: No cardiomegaly. Bones/joints: Osteopenia and degenerative change. IMPRESSION: Emphysematous change and mild interstitial prominence. Electronically signed by: Rah Hoyos On 07/28/2020 16:37:27 PM
--- NOTE | 2020-07-28 16:41 | REPVR ---
PROCEDURE INFORMATION: Exam: CT Head Without Contrast Exam date and time: 07/28/2020 4:33 PM Age: 65 years old Clinical indication: Pain; Headache TECHNIQUE: Imaging protocol: Computed tomography of the head without contrast. Radiation optimization: All CT scans at this facility use at least one of these dose optimization techniques: automated exposure control; mA and/or kV adjustment per patient size (includes targeted exams where dose is matched to clinical indication); or iterative reconstruction. COMPARISON: No relevant prior studies available. FINDINGS: Brain: Symmetric prominence of the cortical and cerebellar sulci. Mild small vessel ischemic change. No acute cortical infarct, mass effect, or intracranial hemorrhage. Dural calcification. Cerebral ventricles: Normal configuration of the ventricles. Bones/joints: No acute calvarial pathology prior Paranasal sinuses: No sinus fluid. Mastoid air cells: No mastoid effusion. Soft tissues: Unremarkable soft tissues. IMPRESSION: No acute intracranial pathology. Electronically signed by: Rah Hoyos On 07/28/2020 16:41:02 PM
[2020-07-28 16:49] LABS: BILIRUBIN,DIRECT 0.2 MG/DL (0.0-0.2); BILIRUBIN,TOTAL 0.6 MG/DL (0.2-1.0); CALCIUM LEVEL 8.6 MG/DL (8.8-10.2); CK-MB VALUE MASS 4.4 NG/ML (<3.6); CREATININE FOR GFR 1.37 MG/DL (0.70-1.30); GLOMERULAR FILTRATION RATE 55.2 (>49); MB/CK RELATIVE INDEX 2.15 (< OR =4); POTASSIUM SERUM 3.9 MEQ/L (3.5-5.1); THYROID STIMULATING HORMONE 0.87 uIU/ML (0.358-3.740); TROPONIN I 0.04 NG/ML (< 0.10)
--- NOTE | 2020-07-28 17:16 | ECGEPIP ---
[facility] - ED Test Date: 2020-07-28 Pat Name: LISA DUFFY Department: Room: - Gender: Male Hog Tender: josse : 1955 Requested By: Heather Bernal Order Number: [id number] Reading MD: Enoc Fernandez Measurements Intervals [place] Rate: 63 P: 57 WV: 125 QRS: 34 QRSD: 90 T: 31 QT: 406 QTc: 416 Interpretive Statements SINUS RHYTHM SIMILAR TO 10/21/19 Electronically Signed on 07-28-2020 17:16:11 EDT by Enoc Fernandez
[2020-07-28 17:57] VITALS: BP 127/74
== END 2020-07-28 18:06 | disposition home or self-care (01) ==
LOC: M ED 15:31
DX: R51 Headache (principal); R07.89 Other chest pain; E78.5 Hyperlipidemia, unspecified; F41.9 Anxiety disorder, unspecified; Z79.899 Other long term (current) drug therapy; Z88.5 Allergy status to narcotic agent; Z88.8 Allergy status to other drugs, medicaments and biological substances
CPT/HCPCS: 36415; 70450; 71045; 80048; 80076; 82550; 82553; 83690; 84443; 84484; 85025; 85610; 85730; 93005; 93041; 94760; 99285; U0003

== ENCOUNTER → 2020-08-19 | Outpatient (CLI) | payer MEDICARE, BC ==
--- NOTE | 2020-08-19 16:14 | REP ---
INDICATION: KNEE PAIN COMPARISON: None. TECHNIQUE: AP, lateral, bilateral oblique and sunrise views right and left knee. FINDINGS: Very minimal symmetric age-related changes are appreciated bilaterally. No significant overt arthritic changes are noted. No acute or healed injury. No effusion. IMPRESSION: Minimal symmetric age-related changes. No overt osteoarthritic findings. No acute fracture or dislocation. <Electronically signed by Robin Dorantes > 08/19/20 [id number]
== END ==
LOC: M CLY 15:25
PROVIDERS: ATTEND Physician Assistant
DX: M25.561 Pain in right knee (principal); M25.562 Pain in left knee; G89.29 Other chronic pain
CPT/HCPCS: 73564; G0463; G8483

== ENCOUNTER → 2020-08-24 | Outpatient (REF) | payer MEDICARE, OTHER ==
[2020-08-24 16:49] LABS: BLOOD UREA NITROGEN 18 MG/DL (7-18); CREATININE FOR GFR 0.98 MG/DL (0.70-1.30); GLOMERULAR FILTRATION RATE > 60.0 (>49)
== END ==
LOC: M SFHCCLAY 10:01
PROVIDERS: ATTEND Physician Assistant
DX: N28.1 Cyst of kidney, acquired (principal); Z12.5 Encounter for screening for malignant neoplasm of prostate
CPT/HCPCS: 82565; 84520; G0103

== ENCOUNTER → 2020-08-27 | Outpatient (CLI) | payer MEDICARE, BC, OTHER ==
[~2020-08-27] MED LIST changes: +PROHANCE 279.3MG/ML 15ML VIAL As Ordered ONE; +PROHANCE 279.3MG/ML 5ML VIAL As Ordered ONE
--- NOTE | 2020-08-27 09:58 | REP ---
INDICATION: RENAL CYST. COMPARISON: Ultrasound 02/25/2020. TECHNIQUE: Multiple sequences obtained in the axial and coronal planes prior to and following the intravenous administration of 20 mL ProHance. FINDINGS: Kidneys are normal in size. There is a cyst in the lower pole of the right kidney. It measures 5.0 x 4.6 x 4.8 cm. There are a few thin internal septations. The margins are slightly lobulated. There is no internal enhancement. This is consistent with a benign cyst, Bosniak 2. There is an adjacent nonenhancing benign cyst more anteriorly in the mid right kidney measuring 1 cm in diameter. Left kidney demonstrates few scattered tiny subcentimeter cysts. No suspicious renal mass is seen bilaterally. There is no hydronephrosis. The visualized liver demonstrates signal characteristics of diffuse fatty infiltration. No mass is seen in the visualized liver. The visualized spleen, adrenals and pancreas are unremarkable. No biliary dilatation is seen. The gallbladder is grossly unremarkable. There is no adenopathy or free fluid in the visualized abdomen. IMPRESSION: The previously noted complex cyst in the lower pole of the right kidney posteriorly demonstrates a few thin nonenhancing internal septations and is benign, Bosniak 2 classification. No further follow-up is needed. Other small cysts are seen as discussed above. Diffuse fatty infiltration of the liver. <Electronically signed by Michael Seymour > 08/27/20 [id number]
== END ==
LOC: M RAD 06:40
PROVIDERS: ATTEND Physician Assistant
DX: N28.1 Cyst of kidney, acquired (principal); K76.0 Fatty (change of) liver, not elsewhere classified
CPT/HCPCS: 74183; A9576

== ENCOUNTER → 2020-09-18 | Outpatient (CLI) | payer MEDICARE, BC, OTHER ==
[~2020-09-18] MED LIST changes: -PROHANCE 279.3MG/ML 15ML VIAL As Ordered ONE; -PROHANCE 279.3MG/ML 5ML VIAL As Ordered ONE
--- NOTE | 2020-09-18 20:12 | REP ---
INDICATION: ABN FINDINGS OF LUNG FIELD COMPARISON: 10/21/2019 TECHNIQUE: Axial noncontrast images from the thoracic inlet to the upper abdomen with coronal and sagittal reformations. This CT examination was performed using the following dose reduction techniques: Automated exposure control, adjustment of mA and/or kv according to the patient's size, and use of iterative reconstruction technique. FINDINGS: Lung david demonstrate mild emphysematous changes. No consolidation, suspicious nodule or mass lesion. No pleural effusion. No pneumothorax. Tracheobronchial tree is patent. No obvious adenopathy. Atherosclerotic changes to the thoracic aorta and coronary arteries noted without aortic aneurysm or cardiomegaly. No pericardial effusion. Limited upper abdomen demonstrates normal bilateral adrenal glands. Musculoskeletal structures demonstrate degenerative changes without acute osseous abnormality. IMPRESSION: Mild stable emphysematous changes. No acute mediastinal or pleuroparenchymal process. <Electronically signed by Robin Dorantes > 09/18/202008
== END ==
LOC: M RAD 14:29
PROVIDERS: ATTEND Nurse Practitioner Family
DX: R91.8 Other nonspecific abnormal finding of lung field (principal); J43.9 Emphysema, unspecified; I70.0 Atherosclerosis of aorta; I25.10 Atherosclerotic heart disease of native coronary artery without angina pectoris

== ENCOUNTER → 2020-09-29 | Outpatient (CLI) | payer MEDICARE, BC, OTHER ==
--- NOTE | 2020-09-29 13:22 | REPPI ---
INDICATION: ELEVATED PSA. COMPARISON: None. TECHNIQUE: Transrectal prostate sonography. Sonographic guidance is provided. FINDINGS: Trans rectal prostate sonography demonstrates unremarkable seminal vesicles. Prostate gland is heterogeneously enlarged with calcifications and cystic changes noted. Glandular dimensions are measured at 4.2 x 4.2 x 4.9 cm with a calculated glandular volume of 45.2 ml. Transrectal sonographic guidance is provided to Dr. Aiken who performed trans rectal ultrasound guided needle biopsy procedure. IMPRESSION: Transrectal prostate ultrasound and sonographic guidance as above. <Electronically signed by Marty Diamond > 09/29/20 [id number]
== END ==
LOC: M SMT PRO 09:19
PROVIDERS: ATTEND Urology
DX: N42.89 Other specified disorders of prostate (principal)
CPT/HCPCS: 55700; 76872; 76942; G0416

== ENCOUNTER → 2020-10-01 | Outpatient (CLI) | payer MEDICARE, BC, OTHER ==
[~2020-10-01] MED LIST changes: +METHACHOLINE KIT (J7674) INH ONE
--- NOTE | 2020-10-01 09:57 | PFTRPT ---
Height: 68.50 Inches Weight: 234.00 Lbs BSA: 2.20 Diagnosis: R05 DATE: 10/01/2020 ORDERED BY: DORON Galvan QUALITY: Study of excellent technical quality. PROCEDURE: Under protocol, methacholine was administered. At a dose of 2.5 mg or 13.875 CDUs, a 22% decline in the FEV1 was noted. PC of 1.47 is significant. Flow rates did return to baseline post bronchodilator administration. IMPRESSION: Positive methacholine challenge study. MTDD
== END ==
LOC: M CARPUL 08:27
PROVIDERS: ATTEND Nurse Practitioner Family
DX: R05 Cough (principal)
CPT/HCPCS: 94070; 95070; J7674

== ENCOUNTER → 2020-10-06 | Outpatient (REF) | payer MEDICARE, OTHER ==
[~2020-10-06] MED LIST changes: -METHACHOLINE KIT (J7674) INH ONE
[2020-10-06 17:46] LABS: APPEARANCE, URINE CLEAR (CLEAR); BACTERIA, URINE AUTO NEGATIVE (NEGATIVE); BILIRUBIN, URINE AUTO NEGATIVE (NEGATIVE); BLOOD, URINE BLOOD 1+ (NEGATIVE); COLOR, URINE STRAW (YELLOW); GLUCOSE, URINE (UA) AUTO NEGATIVE (NEGATIVE); KETONE, URINE AUTO NEGATIVE (NEGATIVE); LEUKOCYTE ESTERASE, URINE AUTO NEGATIVE (NEGATIVE); NITRITE, URINE AUTO NEGATIVE (NEGATIVE); PROTEIN, URINE AUTO NEGATIVE (NEGATIVE); RBC, URINE AUTO 0 /HPF (0-3); SPECIFIC GRAVITY URINE AUTO 1.006 (1.002-1.035); SQUAMOUS EPITHELIAL CELL UR AU 0 /HPF (0-6); UROBILINOGEN, URINE AUTO 0.2 mg/dL (0.0-2.0); WBC, URINE AUTO 1 /HPF (0-3)
== END ==
LOC: M SMT 16:49
PROVIDERS: ATTEND Urology
DX: N39.0 Urinary tract infection, site not specified (principal)
CPT/HCPCS: 51798; 81001; 87086; G0463

== ENCOUNTER → 2020-12-28 | Outpatient (REF) | payer MEDICARE, OTHER ==
[~2020-12-28] MED LIST changes: +METH-1164 PO; -METH1TAB40 PO
[2020-12-28 17:51] LABS: BASO # 0.1 10^3/uL (0.0-0.2); BASO % 0.7 % (0.0-1.0); EOS # 0.2 10^3/uL (0.0-0.5); HEMATOCRIT 47.7 % (42.0-52.0); HEMOGLOBIN 15.4 g/dl (13.5-17.5); LYMPH # 1.3 10^3/uL (1.5-5.0); LYMPH % 17.3 % (24.0-44.0); MEAN CORPUSCULAR HEMOGLOBIN 31.8 pg (27.0-33.0); MEAN CORPUSCULAR HGB CONC 32.3 g/dl (32.0-36.5); MEAN CORPUSCULAR VOLUME 98.4 fl (80.0-96.0); MONO # 0.9 10^3/uL (0.0-0.8); MONO % 11.8 % (2.0-8.0); NEUTROPHILS % 67.3 % (36.0-66.0); PLATELET COUNT, AUTOMATED 121 10^3/uL (150-450); RED BLOOD COUNT 4.85 10^6/uL (4.30-6.10); WHITE BLOOD COUNT 7.5 10^3/uL (4.0-10.0)
[2020-12-28 18:38] LABS: ALBUMIN 4.1 GM/DL (3.2-5.2); ALT/SGPT 39 U/L (12-78); BILIRUBIN,TOTAL 0.9 MG/DL (0.2-1.0); BLOOD UREA NITROGEN 19 MG/DL (7-18); CALCIUM LEVEL 9.1 MG/DL (8.8-10.2); CARBON DIOXIDE LEVEL 32 MEQ/L (21-32); CHLORIDE LEVEL 106 MEQ/L (98-107); CREATININE FOR GFR 0.91 MG/DL (0.70-1.30); FREE T4 0.86 NG/DL (0.76-1.46); GLOMERULAR FILTRATION RATE > 60.0 (>49); GLUCOSE, FASTING 86 MG/DL (70-100); POTASSIUM SERUM 4.4 MEQ/L (3.5-5.1); SODIUM LEVEL 141 MEQ/L (136-145); THYROID STIMULATING HORMONE 0.775 uIU/ML (0.358-3.740); TOTAL PROTEIN 6.9 GM/DL (6.4-8.2)
== END ==
LOC: M SFHCCLAY 10:30
PROVIDERS: ATTEND Family Medicine
DX: E78.5 Hyperlipidemia, unspecified (principal); F41.9 Anxiety disorder, unspecified; D69.6 Thrombocytopenia, unspecified; D64.9 Anemia, unspecified; R25.1 Tremor, unspecified

== ENCOUNTER → 2021-01-06 | Outpatient (CLI) | payer MEDICARE, OTHER ==
[~2021-01-06] MED LIST changes: +ADVA115A INH; +D31000TA2 PO; +FLOM0.4C39 PO; +FLUT11IN INH; +GLUC1TAB58 PO; +OCUVCAP2 PO
[2021-01-06 14:45] LABS: FREE T4 0.78 NG/DL (0.76-1.46); THYROID STIMULATING HORMONE 1.06 uIU/ML (0.358-3.740)
[2021-01-06 14:47] LABS: FOLATE 12.2 NG/ML
== END ==
LOC: M PLALAB 09:54
PROVIDERS: ATTEND Psychiatry & Neurology Neurology
DX: Z01.812 Encounter for preprocedural laboratory examination (principal); E07.9 Disorder of thyroid, unspecified; E53.8 Deficiency of other specified B group vitamins; Z20.822 Contact with and (suspected) exposure to COVID-19
CPT/HCPCS: 36415; 82607; 82746; 84207; 84425; 84439; 84443; 84446; U0003

== ENCOUNTER → 2021-01-06 | Outpatient (CLI) | payer MEDICARE, BC, OTHER | LOC: M LABSMTC 10:12 | PROVIDERS: ATTEND Anesthesiology | DX: Z01.812 Encounter for preprocedural laboratory examination (principal); Z20.822 Contact with and (suspected) exposure to COVID-19 ==

== ENCOUNTER 2021-01-11 06:43 | Day surgery (SDC) | payer MEDICARE, BC, OTHER ==
[~2021-01-11] VITALS: Ht 172.7 cm; Wt 105.2 kg
[2021-01-11] MEDS ORDERED: NS 1,000 ML IV ONE (07:00)
[2021-01-11] MEDS ORDERED: propofoL 200 MG/20 ML VIAL As Ordered ONE (07:13)
[2021-01-11] MEDS ORDERED: LIDOCAINE 2% 100MG/5ML SDV (FOR ANES.) As Ordered ONE (07:13)
--- NOTE | 2021-01-11 08:06 | ROOR ---
Patient Name: Chandra Wagner Procedure Date: 01/11/2021 7:36 AM Date of : 1955 Age: 65 Room: [facility] Gender: Male Note Status: Finalized Procedure: Colonoscopy Indications: Screening for colorectal malignant neoplasm Providers: Sam Sullivan MD Referring MD: Donte Flaherty MD Requesting Provider: Medicines: Monitored Anesthesia Care Complications: No immediate complications. Procedure: Pre-Anesthesia Assessment: - Prior to the procedure, a History and Physical was performed, and patient medications and allergies were reviewed. The patient is competent. The risks and benefits of the procedure and the sedation options and risks were discussed with the patient. All questions were answered and informed consent was obtained. Patient identification and proposed procedure were verified by the physician, the nurse and the anesthesiologist in the procedure room. Mental Status Examination: alert and oriented. Airway Examination: normal oropharyngeal airway and neck mobility. Respiratory Examination: clear to auscultation. CV Examination: normal. Prophylactic Antibiotics: The patient does not require prophylactic antibiotics. Prior Anticoagulants: The patient has taken no previous anticoagulant or antiplatelet agents. ASA Grade Assessment: II - A patient with mild systemic disease. After reviewing the risks and benefits, the patient was deemed in satisfactory condition to undergo the procedure. The anesthesia plan was to use monitored anesthesia care (MAC). Immediately prior to administration of medications, the patient was re-assessed for adequacy to receive sedatives. The heart rate, respiratory rate, oxygen saturations, blood pressure, adequacy of pulmonary ventilation, and response to care were monitored throughout the procedure. The physical status of the patient was re-assessed after the procedure. The Colonoscope was introduced through the anus and advanced to the terminal ileum, with identification of the appendiceal orifice and IC valve. The colonoscopy was performed without difficulty. The patient tolerated the procedure well. The quality of the bowel preparation was good. The terminal ileum, ileocecal valve, appendiceal orifice, and rectum were photographed. Scope insertion time was 2 minutes. Scope withdrawal time was 9 minutes. The total duration of the procedure was 12 minutes. Findings: The perianal and digital rectal examinations were normal. The terminal ileum appeared normal. Two sessile polyps were found in the descending colon. The polyps were 3 to 4 mm in size. These polyps were removed with a jumbo cold forceps. Resection and retrieval were complete. Verification of patient identification for the specimen was done by the physician and nurse using the patient's name, date and medical record number. Estimated blood loss was minimal. Non-bleeding external and internal hemorrhoids were found during retroflexion. The hemorrhoids were medium-sized. Impression: - The examined portion of the ileum was normal. - Two 3 to 4 mm polyps in the descending colon, removed with a jumbo cold forceps. Resected and retrieved. - Non-bleeding external and internal hemorrhoids. Recommendation: - Patient has a contact number available for emergencies. The signs and symptoms of potential delayed complications were discussed with the patient. Return to normal activities tomorrow. Written discharge instructions were provided to the patient. - High fiber diet. - Continue present medications. - Await pathology results. - Repeat colonoscopy in 5-10 years for surveillance based on pathology results. - Use fiber, for example Citrucel, Fibercon, Konsyl or Metamucil. - Telephone GI clinic for pathology results in 2 weeks. - Return to primary care physician. Procedure Code(s): --- Professional --- 83700, Colonoscopy, flexible; with biopsy, single or multiple Diagnosis Code(s): --- Professional --- Z12.11, Encounter for screening for malignant neoplasm of colon K64.8, Other hemorrhoids K63.5, Polyp of colon CPT copyright 2019 [employer]. All rights reserved. The codes documented in this report are preliminary and upon in service educator review may be revised to meet current compliance requirements. Sam Sullivan MD Sam Sullivan MD 01/11/2021 8:06:11 AM Electronically signed by Sam Sullivan MD Number of Addenda: 0 Note Initiated On: 01/11/2021 7:36 AM Estimated Blood Loss: Estimated blood loss was minimal.
[2021-01-11 08:23] VITALS: BP 121/69
== END 2021-01-11 08:45 | disposition home or self-care (01) ==
LOC: M OPP 06:43
PROVIDERS: ATTEND Internal Medicine Gastroenterology
DX: Z12.11 Encounter for screening for malignant neoplasm of colon (principal); D12.6 Benign neoplasm of colon, unspecified; K64.8 Other hemorrhoids; Z87.891 Personal history of nicotine dependence; Z79.899 Other long term (current) drug therapy; Z88.5 Allergy status to narcotic agent

== ENCOUNTER → 2021-04-06 | Outpatient (REF) | payer MEDICARE, BC, OTHER ==
[2021-04-07 23:07] LABS: PSA % FREE 12.1 % (.); PSA FREE 1.15 ng/mL; PSA TOTAL 9.5 ng/mL (0.0-4.0)
== END ==
LOC: M PLALAB 12:51
PROVIDERS: ATTEND Urology
DX: R97.20 Elevated prostate specific antigen [PSA] (principal)

== ENCOUNTER → 2021-04-13 | Outpatient (REF) | payer MEDICARE, BC, OTHER | LOC: M SMT 12:55 | PROVIDERS: ATTEND Urology | DX: R97.20 Elevated prostate specific antigen [PSA] (principal); R39.9 Unspecified symptoms and signs involving the genitourinary system ==

== ENCOUNTER → 2021-04-16 | Outpatient (REF) | payer MEDICARE, OTHER ==
[~2021-04-16] MED LIST changes: +OMEP40CA4 PO; -OMEP40CA97 PO
[2021-04-16 12:13] LABS: BASO # 0.1 10^3/uL (0.0-0.2); BASO % 0.8 % (0.0-1.0); EOS # 0.1 10^3/uL (0.0-0.5); EOS % 0.8 % (0.0-3.0); HEMATOCRIT 46.9 % (42.0-52.0); HEMOGLOBIN 15.5 g/dl (13.5-17.5); LYMPH # 1.1 10^3/uL (1.5-5.0); LYMPH % 12.5 % (24.0-44.0); MEAN CORPUSCULAR HEMOGLOBIN 32.2 pg (27.0-33.0); MEAN CORPUSCULAR VOLUME 97.3 fl (80.0-96.0); MONO # 0.6 10^3/uL (0.0-0.8); MONO % 7.3 % (2.0-8.0); NEUTROPHILS # 6.7 10^3/uL (1.5-8.5); NEUTROPHILS % 77.3 % (36.0-66.0); PLATELET COUNT, AUTOMATED 118 10^3/uL (150-450); RED BLOOD COUNT 4.82 10^6/uL (4.30-6.10); WHITE BLOOD COUNT 8.7 10^3/uL (4.0-10.0)
[2021-04-16 12:22] LABS: INR 0.93; PROTHROMBIN TIME 12.7 SECONDS (12.5-14.3)
[2021-04-16 12:23] LABS: PARTIAL THROMBOPLASTIN TIME 29.7 SECONDS (24.2-38.5)
== END ==
LOC: M SFHCCLAY 08:48
PROVIDERS: ATTEND Family Medicine
DX: D69.6 Thrombocytopenia, unspecified (principal); R23.8 Other skin changes
CPT/HCPCS: 85025; 85610; 85730; G0463

== ENCOUNTER → 2021-05-07 | Outpatient (REF) | payer MEDICARE, OTHER ==
[2021-05-07 11:42] LABS: COLLAGEN EPINEPHRINE 114 SECONDS (74-162)
== END ==
LOC: M SFHCCLAY 11:09
PROVIDERS: ATTEND Family Medicine
DX: D69.6 Thrombocytopenia, unspecified (principal); F41.9 Anxiety disorder, unspecified; N52.9 Male erectile dysfunction, unspecified
CPT/HCPCS: 36415; 85576; G0463

== ENCOUNTER → 2021-07-06 | Outpatient (CLI) | payer MEDICARE, BC, OTHER ==
--- NOTE | 2021-07-06 13:18 | REP ---
INDICATION: PAIN IN LEFT SHOULDER. COMPARISON: None. TECHNIQUE: AP and lateral views of the cervical spine are obtained. FINDINGS: Cervical vertebral body heights are preserved. There is straightening of the normal cervical lordosis. Minimal retrolisthesis at C5-6. There is degenerative disc narrowing and spur formation at C5-6. Discogenic spurring is seen anteriorly at C3-4 and C4-5 as well. AP view shows osteoarthritic facet hypertrophy at C3-4 C4-5 and C5-6 bilaterally. There is a soft tissue calcification in the dorsal soft tissues at the level of C5. IMPRESSION: Degenerative disc disease most pronounced at C5-6. Osteoarthritic facet changes as noted above. <Electronically signed by Marty Diamond > 07/06/21 [id number]
--- NOTE | 2021-07-06 13:20 | REP ---
INDICATION: PAIN IN LEFT SHOULDER. COMPARISON: None. TECHNIQUE: Two views of the left shoulder are provided. FINDINGS: The left glenohumeral and acromioclavicular joints are normally aligned. There is mild osteoarthritic hypertrophy of the AC joint. There is a large, 1.1 cm dense soft tissue calcification in the periarticular soft tissues is superior to the greater tuberosity. This consistent with calcific tendinitis or bursitis change. The humeral head is smooth and rounded. Periarticular soft tissues are otherwise unremarkable. IMPRESSION: Calcific tendinitis or bursitis changes. Mild osteoarthritic hypertrophy at the AC joint. <Electronically signed by Marty Diamond > 07/06/21 [id number]
== END ==
LOC: M SOG 11:53
PROVIDERS: ATTEND Orthopaedic Surgery
DX: M54.2 Cervicalgia (principal); M25.512 Pain in left shoulder

== ENCOUNTER → 2021-08-04 | Outpatient (REF) | payer MEDICARE, OTHER ==
[2021-08-04 14:22] LABS: BLOOD UREA NITROGEN 17 MG/DL (7-18); CALCIUM LEVEL 8.8 MG/DL (8.8-10.2); CARBON DIOXIDE LEVEL 31 MEQ/L (21-32); CHLORIDE LEVEL 108 MEQ/L (98-107); CHOLESTEROL LEVEL 183 MG/DL (<200); CHOLESTEROL RISK RATIO 2.904 (<5); CREATININE FOR GFR 1.05 MG/DL (0.70-1.30); GLOMERULAR FILTRATION RATE > 60.0 (>49); GLUCOSE, FASTING 110 MG/DL (70-100); HDL CHOLESTEROL 63 MG/DL (>40); LDL CHOLESTEROL 107 MG/DL (<100); NON-HDL-C 120 MG/DL; POTASSIUM SERUM 3.9 MEQ/L (3.5-5.1); SODIUM LEVEL 143 MEQ/L (136-145); TRIGLYCERIDES LEVEL 66 MG/DL (<150)
[2021-08-04 18:15] LABS: HEMOGLOBIN A1c 5.5 %
== END ==
LOC: M SFHCCLAY 07:33
PROVIDERS: ATTEND Family Medicine
DX: R97.20 Elevated prostate specific antigen [PSA] (principal); F32.1 Major depressive disorder, single episode, moderate; E78.00 Pure hypercholesterolemia, unspecified

== ENCOUNTER → 2021-09-06 | Outpatient (REF) | payer MEDICARE, OTHER ==
[~2021-09-06] MED LIST changes: +BREO1INH3 INH; -DICY20TA11 OR; +DICY20TA20 OR; +FLUV50TA PO; +PROAAER10 INH; +RISP0.5T21 PO
== END ==
LOC: M SFHCCLAY 15:45
PROVIDERS: ATTEND Family Medicine
DX: R30.0 Dysuria (principal); R97.20 Elevated prostate specific antigen [PSA]; F32.1 Major depressive disorder, single episode, moderate; Z65.9 Problem related to unspecified psychosocial circumstances; Z63.0 Problems in relationship with spouse or partner

== ENCOUNTER → 2021-11-30 | Outpatient (REF) | payer MEDICARE, BC, OTHER | LOC: M SMT PRO 13:12 | PROVIDERS: ATTEND Urology | DX: R97.20 Elevated prostate specific antigen [PSA] (principal) ==

== ENCOUNTER → 2021-12-28 | Outpatient (REF) | payer MEDICARE, BC, OTHER ==
[~2021-12-28] MED LIST changes: -D31000TA2 PO; +VITA100093 PO
[2021-12-28 13:18] LABS: APPEARANCE, URINE HAZY (CLEAR); BACTERIA, URINE AUTO NEGATIVE (NEGATIVE); BILIRUBIN, URINE AUTO NEGATIVE (NEGATIVE); BLOOD, URINE BLOOD NEGATIVE (NEGATIVE); COLOR, URINE AMBER (YELLOW); GLUCOSE, URINE (UA) AUTO NEGATIVE (NEGATIVE); KETONE, URINE AUTO NEGATIVE (NEGATIVE); LEUKOCYTE ESTERASE, URINE AUTO NEGATIVE (NEGATIVE); NITRITE, URINE AUTO NEGATIVE (NEGATIVE); PROTEIN, URINE AUTO NEGATIVE (NEGATIVE); RBC, URINE AUTO 1 /HPF (0-3); SPECIFIC GRAVITY URINE AUTO 1.021 (1.002-1.035); SQUAMOUS EPITHELIAL CELL UR AU 0 /HPF (0-6); UROBILINOGEN, URINE AUTO 0.2 mg/dL (0.0-2.0); WBC, URINE AUTO 2 /HPF (0-3)
== END ==
LOC: M SMT 13:07
PROVIDERS: ATTEND Urology
DX: N39.0 Urinary tract infection, site not specified (principal)

== ENCOUNTER → 2022-06-09 | Outpatient (CLI) | payer MEDICARE, BC, OTHER ==
[2022-06-10 23:07] LABS: PSA % FREE 10.2 % (.); PSA FREE 0.42 ng/mL; PSA TOTAL 4.1 ng/mL (0.0-4.0)
== END ==
LOC: M PLALAB 09:35
PROVIDERS: ATTEND Urology
DX: R97.20 Elevated prostate specific antigen [PSA] (principal)

== ENCOUNTER → 2022-12-06 | Outpatient (CLI) | payer MEDICARE, BC, OTHER ==
[2022-12-08 23:07] LABS: PSA % FREE 10.2 % (.); PSA FREE 0.5 ng/mL; PSA TOTAL 4.9 ng/mL (0.0-4.0)
== END ==
LOC: M PLALAB 10:47
PROVIDERS: ATTEND Urology
DX: R97.20 Elevated prostate specific antigen [PSA] (principal)

== ENCOUNTER → 2023-04-11 | Outpatient (REF) | payer MEDICARE, BC ==
[~2023-04-11] MED LIST changes: +ALBU8.5H; +FLUV150C; +FLUV25TA13; +MV-M1CAP8 PO
[2023-04-11 11:49] LABS: BASO % 0.5 % (0.0-1.0); EOS # 0.2 10^3/uL (0.0-0.5); EOS % 1.9 % (0.0-3.0); HEMATOCRIT 47.1 % (42.0-52.0); HEMOGLOBIN 15.2 g/dl (13.5-17.5); MEAN CORPUSCULAR HGB CONC 32.3 g/dl (32.0-36.5); MEAN CORPUSCULAR VOLUME 96.1 fl (80.0-96.0); MONO # 0.7 10^3/uL (0.0-0.8); MONO % 8.9 % (2.0-8.0); NEUTROPHILS # 5.9 10^3/uL (1.5-8.5); NEUTROPHILS % 74.6 % (36.0-66.0); PLATELET COUNT, AUTOMATED 126 10^3/uL (150-450); WHITE BLOOD COUNT 7.9 10^3/uL (4.0-10.0)
[2023-04-11 12:08] LABS: ALBUMIN 3.7 G/DL (3.2-5.2); ALKALINE PHOSPHATASE 93 U/L (46-116); ALT/SGPT 24 U/L (7.0-40); AST/SGOT 12 U/L (<34); BILIRUBIN,TOTAL 0.6 MG/DL (0.3-1.2); BLOOD UREA NITROGEN 18 MG/DL (9-23); CALCIUM LEVEL 8.9 MG/DL (8.3-10.6); CARBON DIOXIDE LEVEL 30 MMOL/L (20-31); CHLORIDE LEVEL 104 MMOL/L (98-107); CREATININE FOR GFR 1.07 MG/DL (0.70-1.30); GLOMERULAR FILTRATION RATE > 60.0 (>49); GLUCOSE, FASTING 95 MG/DL (74-106); POTASSIUM SERUM 4.2 MMOL/L (3.5-5.1); SODIUM LEVEL 138 MMOL/L (136-145); TOTAL PROTEIN 6.4 G/DL (5.7-8.2)
== END ==
LOC: M LABDRAWC 11:02
PROVIDERS: ATTEND Podiatrist
DX: M20.22 Hallux rigidus, left foot (principal); M79.672 Pain in left foot

== ENCOUNTER → 2023-04-11 | Outpatient (CLI) | payer MEDICARE, BC | LOC: M CLY 08:57 | PROVIDERS: ATTEND Podiatrist | DX: Z01.818 Encounter for other preprocedural examination (principal) ==

== ENCOUNTER 2023-04-21 06:04 | Day surgery (SDC) | payer MEDICARE, BC, OTHER ==
[~2023-04-21] VITALS: Ht 172.7 cm; Wt 112.8 kg
[~2023-04-21 06:04] MED LIST changes: -ALBU8.5H; +ALBU8.5H INH; +FINA5TAB2 PO; -FLUT11IN INH; +FLUT12AE6 INH; -FLUV150C; +FLUV150C PO; -FLUV25TA13; +FLUV25TA13 PO; +GENTAMICIN SULF 80MG/2ML VIAL As Ordered ONE; +LIDOCAINE 2% MDV 20ML VIAL As Ordered ONE; +NEOSPORIN GU IRRIG 20ML VIAL As Ordered ONE; +OMEP40CA5 PO; +RISP-8 PO; +ceFAZolin SOD 2 GM in IV 1 EA IV ONE
[2023-04-21] MEDS ORDERED: LR 1,000 ML IV SCH (06:50)
[2023-04-21] MEDS ORDERED: LIDOCAINE 2% 100MG/5ML SDV (FOR ANES.) As Ordered ONE (07:12)
[2023-04-21] MEDS ORDERED: fentaNYL 100 MCG/2 ML INJECTION As Ordered ONE (07:12)
[2023-04-21] MEDS ORDERED: propofoL 200 MG/20 ML VIAL As Ordered ONE ×2 (07:12→07:13)
[2023-04-21] MEDS ORDERED: MIDAZOLAM INJ 2MG/2ML VIAL As Ordered ONE (07:12)
[2023-04-21] MEDS ORDERED: ONDANSETRON 4MG 2ML VIAL As Ordered ONE (07:13)
[2023-04-21] MEDS ORDERED: propofoL 500 MG/50 ML VIAL As Ordered ONE (07:23)
[2023-04-21] MEDS ORDERED: KETOROLAC 60MG 2ML VIAL As Ordered ONE (08:15)
[2023-04-21] MEDS ORDERED: ACETAMINOPHEN 1000MG 100ML IV BAG As Ordered ONE (09:29)
[2023-04-21 10:00] VITALS: BP 149/74; TEMP 96.9; O2SAT 95
== END 2023-04-21 10:05 | disposition home or self-care (01) ==
LOC: M SDC 06:04
PROVIDERS: ATTEND Podiatrist
DX: M20.5X2 Other deformities of toe(s) (acquired), left foot (principal); E78.5 Hyperlipidemia, unspecified; M10.9 Gout, unspecified; K44.9 Diaphragmatic hernia without obstruction or gangrene; F41.9 Anxiety disorder, unspecified; F32.A Depression, unspecified; F42.9 Obsessive-compulsive disorder, unspecified; N52.9 Male erectile dysfunction, unspecified; K21.9 Gastro-esophageal reflux disease without esophagitis; M19.90 Unspecified osteoarthritis, unspecified site; J45.909 Unspecified asthma, uncomplicated; J43.9 Emphysema, unspecified; G47.30 Sleep apnea, unspecified; N40.1 Benign prostatic hyperplasia with lower urinary tract symptoms; Z88.5 Allergy status to narcotic agent; Z79.899 Other long term (current) drug therapy; Z79.51 Long term (current) use of inhaled steroids; M50.90 Cervical disc disorder, unspecified, unspecified cervical region
CPT/HCPCS: 28289; 73630; 76000; 88300; 97116; 97530; J0131; J0690; J1100; J1580; J1885; J2250; J3010

== ENCOUNTER → 2023-06-12 | Outpatient (CLI) | payer MEDICARE, BC, OTHER ==
[~2023-06-12] MED LIST changes: -GENTAMICIN SULF 80MG/2ML VIAL As Ordered ONE; -LIDOCAINE 2% MDV 20ML VIAL As Ordered ONE; -NEOSPORIN GU IRRIG 20ML VIAL As Ordered ONE; -ceFAZolin SOD 2 GM in IV 1 EA IV ONE
[2023-06-13 14:10] LABS: PSA TOTAL 3.3 ng/mL (0.0-4.0)
== END ==
LOC: M PLALAB 10:44
PROVIDERS: ATTEND Urology
DX: R97.20 Elevated prostate specific antigen [PSA] (principal)

== ENCOUNTER → 2023-06-12 | Outpatient (CLI) | payer MEDICARE, BC, OTHER | LOC: M CLY 15:11 | PROVIDERS: ATTEND Physician Assistant | DX: M75.32 Calcific tendinitis of left shoulder (principal); M19.012 Primary osteoarthritis, left shoulder ==

== ENCOUNTER → 2023-06-21 | Outpatient (REF) | payer MEDICARE, BC, OTHER ==
[2023-06-21 19:11] LABS: BLOOD UREA NITROGEN 24 MG/DL (9-23); CALCIUM LEVEL 9.4 MG/DL (8.3-10.6); CARBON DIOXIDE LEVEL 30 MMOL/L (20-31); CHLORIDE LEVEL 99 MMOL/L (98-107); CHOLESTEROL LEVEL 180 MG/DL (<200); CREATININE FOR GFR 1.02 MG/DL (0.70-1.30); GLOMERULAR FILTRATION RATE > 60.0 (>49); GLUCOSE, FASTING 104 MG/DL (74-106); HDL CHOLESTEROL 74.7 MG/DL (>40); LDL CHOLESTEROL 86.1 MG/DL (<100); NON-HDL-C 105.3 MG/DL; POTASSIUM SERUM 4.6 MMOL/L (3.5-5.1); SODIUM LEVEL 138 MMOL/L (136-145); TRIGLYCERIDES LEVEL 96 MG/DL (<150)
== END ==
LOC: M SFHCCLAY 12:09
PROVIDERS: ATTEND Family Medicine
DX: E78.5 Hyperlipidemia, unspecified (principal); M25.511 Pain in right shoulder

== ENCOUNTER → 2023-07-07 | Outpatient (CLI) | payer MEDICARE, BC, OTHER ==
[~2023-07-07] MED LIST changes: +PROHANCE 279.3MG/ML 15ML VIAL ONE; +PROHANCE 279.3MG/ML 5ML VIAL ONE
== END ==
LOC: M PLAIMG 09:07
PROVIDERS: ATTEND Family Medicine
DX: M25.512 Pain in left shoulder (principal)
CPT/HCPCS: 73223; A9576

== ENCOUNTER 2023-09-16 12:14 | Inpatient (IN) | payer MEDICARE, BC, OTHER ==
[~2023-09-16] VITALS: Ht 172.7 cm; Wt 112.6 kg
[~2023-09-16 12:14] MED LIST changes: -PROHANCE 279.3MG/ML 15ML VIAL ONE; -PROHANCE 279.3MG/ML 5ML VIAL ONE
[2023-09-16 13:11] LABS: HEMATOCRIT 47.9 % (42.0-52.0); HEMOGLOBIN 16.4 g/dl (13.5-17.5); MEAN CORPUSCULAR HEMOGLOBIN 32.5 pg (27.0-33.0); MEAN CORPUSCULAR HGB CONC 34.2 g/dl (32.0-36.5); MEAN CORPUSCULAR VOLUME 94.9 fl (80.0-96.0); PLATELET COUNT, AUTOMATED 113 10^3/uL (150-450); RED BLOOD COUNT 5.05 10^6/uL (4.30-6.10); WHITE BLOOD COUNT 8.6 10^3/uL (4.0-10.0)
[2023-09-16] MEDS ORDERED: RISP-8 PO (13:23)
[2023-09-16] MEDS ORDERED: FLUV150C PO (13:28)
[2023-09-16] MEDS ORDERED: FLUV50TA PO (13:32)
[2023-09-16 13:33] LABS: ETHYL ALCOHOL (ETHANOL) < 0.003 % (0.000-0.010)
[2023-09-16 13:35] LABS: ALBUMIN 4.4 G/DL (3.2-5.2); ALKALINE PHOSPHATASE 96 U/L (46-116); ALT/SGPT 30 U/L (7.0-40); AST/SGOT 25 U/L (<34); BILIRUBIN,DIRECT 0.2 MG/DL (<0.4); BILIRUBIN,TOTAL 0.7 MG/DL (0.3-1.2); BLOOD UREA NITROGEN 17 MG/DL (9-23); CALCIUM LEVEL 9.3 MG/DL (8.3-10.6); CARBON DIOXIDE LEVEL 25 MMOL/L (20-31); CHLORIDE LEVEL 103 MMOL/L (98-107); CREATININE FOR GFR 1.07 MG/DL (0.70-1.30); GLOMERULAR FILTRATION RATE > 60.0 (>42); GLUCOSE, FASTING 102 MG/DL (74-106); POTASSIUM SERUM 4.2 MMOL/L (3.5-5.1); SALICYLATE LEVEL < 3.0 MG/DL (<30); SODIUM LEVEL 139 MMOL/L (136-145); TOTAL PROTEIN 7.3 G/DL (5.7-8.2)
[2023-09-16 15:05] LABS: AMPHETAMINES LEVEL URINE NEGATIVE (NEGATIVE)
[2023-09-16 15:06] LABS: BARBITURATES URINE NEGATIVE (NEGATIVE); BENZODIAZEPINES URINE NEGATIVE (NEGATIVE); CANNABINOIDS URINE NEGATIVE (NEGATIVE); COCAINE METABOLITE URINE NEGATIVE (NEGATIVE); METHADONE URINE NEGATIVE (NEGATIVE); OPIATES URINE NEGATIVE (NEGATIVE); PHENCYCLIDINE URINE NEGATIVE (NEGATIVE)
[2023-09-16] MEDS ORDERED: MOM 30ML SUSPENSION UDC PO PRN (20:25)
[2023-09-16] MEDS ORDERED: ACETAMINOPHEN TAB 650MG DOSE (2X325MG) PO PRN (20:25)
[2023-09-16] MEDS ORDERED: IBUPROFEN 400MG TAB PO PRN (20:25)
[2023-09-16] MEDS ORDERED: MAALOX 30 ML SUSP *UDC PO PRN (20:25)
[2023-09-16] MEDS ORDERED: diphenhydrAMINE 25MG CAP PO PRN (20:25)
[2023-09-16] MEDS ORDERED: HOME MED LIST COMPLETE! XX SCH (20:30)
[2023-09-16 22:45] VITALS: BP 135/74; TEMP 97.5; O2SAT 96
[2023-09-17 06:25] VITALS: BP 122/59; TEMP 98.5; O2SAT 96
[2023-09-17] MEDS ORDERED: ALBUTEROL 90 MCG/ACT 8GM HFA INHALER INH PRN (11:05)
[2023-09-17] MEDS: PRAVASTATIN 20 MG TAB PO SCH (12:15)
[2023-09-17] MEDS: OMEPRAZOLE 20MG CAP PO SCH (12:15)
[2023-09-17] MEDS: VITAMIN D 1,000 INTERNATIONAL UNITS TABLET PO SCH (12:16)
[2023-09-17] MEDS: FINASTERIDE 5MG TAB PO SCH (15:42)
[2023-09-17 18:11] VITALS: BP 131/67; TEMP 97.6; O2SAT 97
[2023-09-17] MEDS: ADVAIR HFA 230/21MCG INHALER INH SCH (20:35)
[2023-09-17] MEDS: traZODone 50 MG TAB PO PRN (20:35)
[2023-09-17] MEDS ORDERED: TAMSULOSIN 0.4 MG CAP PO SCH (21:00)
[2023-09-17] MEDS ORDERED: fluvoxaMINE MALEATE 50 MG TAB PO SCH (21:00)
[2023-09-18 06:28] VITALS: BP 158/90; TEMP 97.6; O2SAT 95
[2023-09-18] MEDS ORDERED: IBUPROFEN 400MG TAB PO ONE ×2 (07:50→18:45)
[2023-09-18] MEDS: OMEPRAZOLE 20MG CAP PO SCH (08:09)
[2023-09-18] MEDS: ADVAIR HFA 230/21MCG INHALER INH SCH ×2 (08:09→20:30)
[2023-09-18] MEDS: DULoxetine 30MG CAPSULE (CYMBALTA) PO SCH (08:50)
[2023-09-18] MEDS: FINASTERIDE 5MG TAB PO SCH (08:50)
[2023-09-18] MEDS: VITAMIN D 1,000 INTERNATIONAL UNITS TABLET PO SCH (08:50)
[2023-09-18] MEDS: PRAVASTATIN 20 MG TAB PO SCH ×2 (08:51→18:00)
[2023-09-18 09:44] VITALS: BP 125/67
[2023-09-18 16:09] VITALS: BP 111/15; TEMP 97.5; O2SAT 97
[2023-09-18] MEDS ORDERED: IBUPROFEN 600MG TAB PO PRN (17:55)
[2023-09-18] MEDS: TAMSULOSIN 0.4 MG CAP PO SCH (19:09)
[2023-09-18] MEDS: traZODone 50 MG TAB PO PRN (20:31)
[2023-09-19 06:23] VITALS: BP 128/72; TEMP 97.8; O2SAT 97
[2023-09-19] MEDS: DULoxetine 30MG CAPSULE (CYMBALTA) PO SCH (08:41)
[2023-09-19] MEDS: OMEPRAZOLE 20MG CAP PO SCH (08:41)
[2023-09-19] MEDS: VITAMIN D 1,000 INTERNATIONAL UNITS TABLET PO SCH (08:41)
[2023-09-19] MEDS: ADVAIR HFA 230/21MCG INHALER INH SCH ×2 (08:42→20:00)
[2023-09-19 16:25] VITALS: BP 136/64; TEMP 98.7; O2SAT 99
[2023-09-19] MEDS: TAMSULOSIN 0.4 MG CAP PO SCH (17:53)
[2023-09-19] MEDS: PRAVASTATIN 20 MG TAB PO SCH (17:54)
[2023-09-19] MEDS ORDERED: FINASTERIDE 5MG TAB PO SCH (18:00)
[2023-09-19] MEDS: traZODone 50 MG TAB PO PRN (20:19)
[2023-09-19] MEDS ORDERED: PRAVASTATIN 20 MG TAB PO SCH (21:00)
[2023-09-20 06:27] VITALS: BP 122/57; TEMP 97.9; O2SAT 97
[2023-09-20] MEDS ORDERED: CYMB1CAP5 PO (07:27)
[2023-09-20] MEDS ORDERED: TRAZ-252 PO (07:27)
[2023-09-20] MEDS: ADVAIR HFA 230/21MCG INHALER INH SCH (08:31)
[2023-09-20] MEDS: DULoxetine 30MG CAPSULE (CYMBALTA) PO SCH (08:31)
[2023-09-20] MEDS: OMEPRAZOLE 20MG CAP PO SCH (08:31)
[2023-09-20] MEDS: VITAMIN D 1,000 INTERNATIONAL UNITS TABLET PO SCH (08:32)
== END 2023-09-20 16:50 | disposition home or self-care (01) | DRG 885 ==
LOC: M ED 12:14 → M ED INP 20:25 → M PSY 22:46
PROVIDERS: ADMIT Student in an Organized Health Care Education/Training Program; ATTEND Student in an Organized Health Care Education/Training Program
DX: F32.89 Other specified depressive episodes (principal); C92.90 Myeloid leukemia, unspecified, not having achieved remission; F41.8 Other specified anxiety disorders; E78.5 Hyperlipidemia, unspecified; N40.0 Benign prostatic hyperplasia without lower urinary tract symptoms; N52.9 Male erectile dysfunction, unspecified; K21.9 Gastro-esophageal reflux disease without esophagitis; H91.10 Presbycusis, unspecified ear; L30.9 Dermatitis, unspecified; J45.909 Unspecified asthma, uncomplicated; E55.9 Vitamin D deficiency, unspecified; Z63.5 Disruption of family by separation and divorce; Z86.16 Personal history of COVID-19; Z79.899 Other long term (current) drug therapy; Z88.5 Allergy status to narcotic agent; Z88.8 Allergy status to other drugs, medicaments and biological substances

== ENCOUNTER → 2023-12-05 | Outpatient (CLI) | payer MEDICARE, BC, OTHER ==
[~2023-12-05] MED LIST changes: +CYMB1CAP5 PO; +RISP-105 PO; -RISP-8 PO; +TRAZ-252 PO
== END ==
LOC: M PLALAB 11:22
PROVIDERS: ATTEND Urology
DX: R97.20 Elevated prostate specific antigen [PSA] (principal)

== ENCOUNTER → 2024-01-17 | Outpatient (CLI) | payer MEDICARE, BC | LOC: M CLY 11:38 | PROVIDERS: ATTEND Physician Assistant | DX: K59.00 Constipation, unspecified (principal) ==

== ENCOUNTER → 2024-01-30 | Outpatient (REF) | payer MEDICARE, BC | LOC: M SFHCCLAY 10:51 | PROVIDERS: ATTEND Physician Assistant | DX: R19.7 Diarrhea, unspecified (principal) ==

== ENCOUNTER → 2024-02-19 | Outpatient (CLI) | payer MEDICARE, BC | LOC: M RAD 08:38 | PROVIDERS: ATTEND Physician Assistant | DX: R19.7 Diarrhea, unspecified (principal); R10.13 Epigastric pain ==

== ENCOUNTER → 2024-03-04 | Outpatient (REF) | payer MEDICARE, BC ==
[~2024-03-04] MED LIST changes: +BUPR-597 PO; -BUPR300T92 PO
[2024-03-04 18:36] LABS: BLOOD UREA NITROGEN 15 MG/DL (9-23); CALCIUM LEVEL 8.8 MG/DL (8.3-10.6); CARBON DIOXIDE LEVEL 30 MMOL/L (20-31); CHLORIDE LEVEL 103 MMOL/L (98-107); CREATININE FOR GFR 1.01 MG/DL (0.70-1.30); GLOMERULAR FILTRATION RATE > 60.0 (>42); GLUCOSE, FASTING 90 MG/DL (74-106); POTASSIUM SERUM 4.5 MMOL/L (3.5-5.1); SODIUM LEVEL 138 MMOL/L (136-145)
== END ==
LOC: M SFHCCLAY 10:23
PROVIDERS: ATTEND Physician Assistant
DX: R14.1 Gas pain (principal)

== ENCOUNTER → 2024-03-18 | Outpatient (CLI) | payer MEDICARE, BC ==
[~2024-03-18] MED LIST changes: +GASTROGRAFIN SOLUTION 30ML As Ordered ONE; +ISOVUE-370 76% 100ML VIAL As Ordered ONE
== END ==
LOC: M RAD 13:26
PROVIDERS: ATTEND Physician Assistant
DX: R14.1 Gas pain (principal); K21.9 Gastro-esophageal reflux disease without esophagitis; R10.13 Epigastric pain
CPT/HCPCS: 74160; Q9963; Q9967

== ENCOUNTER → 2024-04-15 | Outpatient (CLI) | payer MEDICARE, BC ==
[~2024-04-15] MED LIST changes: +E-Z-GAS II EFFERVESCENT PACKET (SODIUM BICARB./CITRIC ACID/SIMETHICONE) As Ordered ONE; +E-Z-HD 98% w/w 340GM SUSP BTL As Ordered ONE; +E-Z-PAQUE 96% w/w SUSP 176GM BTL As Ordered ONE; -GASTROGRAFIN SOLUTION 30ML As Ordered ONE; -ISOVUE-370 76% 100ML VIAL As Ordered ONE
== END ==
LOC: M RAD 08:54
PROVIDERS: ATTEND Surgery
DX: R10.13 Epigastric pain (principal)

== ENCOUNTER → 2024-05-29 | Outpatient (CLI) | payer MEDICARE, BC ==
[~2024-05-29] MED LIST changes: -E-Z-GAS II EFFERVESCENT PACKET (SODIUM BICARB./CITRIC ACID/SIMETHICONE) As Ordered ONE; -E-Z-HD 98% w/w 340GM SUSP BTL As Ordered ONE; -E-Z-PAQUE 96% w/w SUSP 176GM BTL As Ordered ONE
[2024-05-29 11:37] LABS: THYROID STIMULATING HORMONE 0.864 uIU/ML (0.55-4.78)
== END ==
LOC: M LAB 09:45
PROVIDERS: ATTEND Family Medicine
DX: E78.00 Pure hypercholesterolemia, unspecified (principal); R14.1 Gas pain

== ENCOUNTER → 2024-05-29 | Outpatient (CLI) | payer MEDICARE, BC ==
[2024-05-30 14:12] LABS: ALMOND IGE FOOD < 0.10 kU/L (<0.10); CASHEW NUT IGE FOOD < 0.10 kU/L (<0.10); CODFISH IGE FOOD < 0.10 kU/L (<0.10); COWS MILK FOOD < 0.10 kU/L (<0.10); EGG WHITE FOOD < 0.1 kU/L (<0.10); HAZELNUT IGE FOOD < 0.10 kU/L (<0.10); PEANUT IGE FOOD < 0.10 kU/L (<0.10); SALMON IGE FOOD < 0.10 kU/L (<0.10); SCALLOP IGE FOOD < 0.10 kU/L (<0.10); SESAME SEED IGE FOOD < 0.10 kU/L (<0.10); SHRIMP IGE FOOD < 0.10 kU/L (<0.10); SOYBEAN IGE FOOD < 0.10 kU/L (<0.10); TUNA IGE FOOD < 0.10 kU/L (<0.10); WALNUT IGE FOOD < 0.10 kU/L (<0.10); WHEAT IGE FOOD < 0.10 kU/L (<0.10)
[2024-06-07 01:24] LABS: ALPHA 2-MACROGLOBULINS,QN 209 mg/dL (106-279); ALT (SGPT) P5P 21 U/L (9-46); APOLIPOPROTEIN A-1 155 mg/dL (94-176); BILIRUBIN, TOTAL 0.5 mg/dL (0.2-1.2); FIBROSIS SCORE 0.29; FIBROSIS STAGE MINIMAL FIBROSIS (F0); GGT 27 U/L (3-70); HAPTOGLOBIN 174 mg/dL (43-212); NECROINFLAM ACT GRADE NO ACTIVITY (A0); NECROINFLAM ACT SCORE 0.08
== END ==
LOC: M LAB 09:41
PROVIDERS: ATTEND Internal Medicine Gastroenterology
DX: R14.1 Gas pain (principal); E78.00 Pure hypercholesterolemia, unspecified; L21.9 Seborrheic dermatitis, unspecified; R14.3 Flatulence; K76.0 Fatty (change of) liver, not elsewhere classified

== ENCOUNTER → 2024-06-04 | Outpatient (CLI) | payer MEDICARE, BC | LOC: M RAD 11:32 | PROVIDERS: ATTEND Surgery | DX: R10.13 Epigastric pain (principal) | CPT/HCPCS: 78264; A9537 ==

== ENCOUNTER → 2024-11-26 | Outpatient (CLI) | payer MEDICARE, BC | LOC: M CLY 14:50 | PROVIDERS: ATTEND Physician Assistant | DX: K59.00 Constipation, unspecified (principal) ==

== ENCOUNTER → 2024-12-10 | Outpatient (CLI) | payer MEDICARE, BC ==
[~2024-12-10] MED LIST changes: +GASTROGRAFIN SOLUTION 30ML ONE
== END ==
LOC: M PLAIMG 08:53
PROVIDERS: ATTEND Physician Assistant
DX: K59.00 Constipation, unspecified (principal); K40.20 Bilateral inguinal hernia, without obstruction or gangrene, not specified as recurrent
CPT/HCPCS: 74176; Q9963

== ENCOUNTER → 2024-12-24 | Outpatient (CLI) | payer MEDICARE, BC ==
[~2024-12-24] MED LIST changes: -GASTROGRAFIN SOLUTION 30ML ONE
== END ==
LOC: M CLY 14:21
PROVIDERS: ATTEND Physician Assistant
DX: M79.645 Pain in left finger(s) (principal)

== ENCOUNTER → 2025-02-10 | Outpatient (REF) | payer MEDICARE, BC ==
[~2025-02-10] MED LIST changes: +FLUV25TA11 PO; -FLUV25TA13 PO
[2025-02-10 12:37] LABS: BASO # 0.1 10^3/uL (0.0-0.2); BASO % 0.9 % (0.0-1.0); EOS # 0.2 10^3/uL (0.0-0.5); EOS % 3.2 % (0.0-3.0); HEMATOCRIT 45.4 % (42.0-52.0); HEMOGLOBIN 15.3 g/dl (13.5-17.5); LYMPH # 1.2 10^3/uL (1.5-5.0); LYMPH % 22.2 % (24.0-44.0); MEAN CORPUSCULAR HEMOGLOBIN 32.6 pg (27.0-33.0); MEAN CORPUSCULAR HGB CONC 33.7 g/dl (32.0-36.5); MEAN CORPUSCULAR VOLUME 96.8 fl (80.0-96.0); MONO # 0.5 10^3/uL (0.0-0.8); MONO % 10.2 % (2.0-8.0); NEUTROPHILS # 3.3 10^3/uL (1.5-8.5); NEUTROPHILS % 62.6 % (36.0-66.0); PLATELET COUNT, AUTOMATED 102 10^3/uL (150-450); RED BLOOD COUNT 4.69 10^6/uL (4.30-6.10); WHITE BLOOD COUNT 5.3 10^3/uL (4.0-10.0)
[2025-02-10 12:44] LABS: ALBUMIN 3.9 G/DL (3.2-5.2); BILIRUBIN,TOTAL 0.8 MG/DL (0.3-1.2); CALCIUM LEVEL 8.9 MG/DL (8.3-10.6); CHOLESTEROL RISK RATIO 3.76 (<5); CREATININE FOR GFR 1.07 MG/DL (0.70-1.30); GLOMERULAR FILTRATION RATE 74.2 (>42); HDL CHOLESTEROL 44.1 MG/DL (>40); LDL CHOLESTEROL 100.1 MG/DL (<100); NON-HDL-C 121.9 MG/DL; POTASSIUM SERUM 4.2 MMOL/L (3.5-5.1); TOTAL PROTEIN 6.8 G/DL (5.7-8.2)
[2025-02-10 13:15] LABS: HEMOGLOBIN A1c 5.1 % (4.0-6.0)
[2025-02-11 13:37] LABS: PSA FREE 0.3 ng/mL
== END ==
LOC: M SFHCCLAY 07:11
PROVIDERS: ATTEND Physician Assistant
DX: Z01.818 Encounter for other preprocedural examination (principal); Z87.898 Personal history of other specified conditions; H26.9 Unspecified cataract; F32.9 Major depressive disorder, single episode, unspecified; E78.00 Pure hypercholesterolemia, unspecified; K40.90 Unilateral inguinal hernia, without obstruction or gangrene, not specified as recurrent; K21.9 Gastro-esophageal reflux disease without esophagitis; K76.0 Fatty (change of) liver, not elsewhere classified; D69.3 Immune thrombocytopenic purpura; C91.10 Chronic lymphocytic leukemia of B-cell type not having achieved remission; N28.1 Cyst of kidney, acquired; N52.9 Male erectile dysfunction, unspecified; N40.1 Benign prostatic hyperplasia with lower urinary tract symptoms; Z79.899 Other long term (current) drug therapy

== ENCOUNTER → 2025-03-05 | Outpatient (CLI) | payer MEDICARE, BC ==
[~2025-03-05] MED LIST changes: -BUPR-597 PO; +BUPR-766 PO; -FLOM0.4C39 PO; +TAMS-18 PO
== END ==
LOC: M WUC 12:15
PROVIDERS: ATTEND Internal Medicine Pulmonary Disease
DX: R06.02 Shortness of breath (principal)

== ENCOUNTER → 2025-03-19 | Outpatient (REF) | payer MEDICARE, BC ==
[2025-03-21 13:56] LABS: PSA FREE 0.2 ng/mL; PSA TOTAL 1.9 ng/mL (< OR = 4.0)
== END ==
LOC: M LABWUC 12:03 → M SMT 12:03
PROVIDERS: ATTEND Urology
DX: Z87.898 Personal history of other specified conditions (principal)

== ENCOUNTER → 2025-05-01 | Outpatient (CLI) | payer MEDICARE, BC ==
[~2025-05-01] MED LIST changes: +ISOVUE-370 76% 100 ML VIAL As Ordered ONE; -PRAV40TA2 PO; +PRAV40TA85 PO
== END ==
LOC: M RAD 13:14
PROVIDERS: ATTEND Internal Medicine Pulmonary Disease
DX: R06.02 Shortness of breath (principal)
CPT/HCPCS: 71275; Q9967

== ENCOUNTER 2025-06-13 14:53 | Emergency (ER) | payer MEDICARE, BC ==
[~2025-06-13 14:53] MED LIST changes: -ISOVUE-370 76% 100 ML VIAL As Ordered ONE
[2025-06-13 16:22] LABS: BASO # 0.1 10^3/uL (0.0-0.2); BASO % 0.8 % (0.0-1.0); EOS # 0.3 10^3/uL (0.0-0.5); EOS % 3.9 % (0.0-3.0); LYMPH # 1.3 10^3/uL (1.5-5.0); LYMPH % 18.0 % (24.0-44.0); MONO # 0.8 10^3/uL (0.0-0.8); MONO % 10.6 % (2.0-8.0); NEUTROPHILS # 4.9 10^3/uL (1.5-8.5); NEUTROPHILS % 66.0 % (36.0-66.0); PLATELET COUNT, AUTOMATED 103 10^3/uL (150-450)
[2025-06-13 16:44] LABS: CK-MB VALUE MASS 3.4 NG/ML (<3.6)
[2025-06-13 16:46] LABS: ALT/SGPT 21 U/L (7.0-40); AST/SGOT 19 U/L (<34); CALCIUM LEVEL 8.6 MG/DL (8.3-10.6); CARBON DIOXIDE LEVEL 29 MMOL/L (20-31); CHLORIDE LEVEL 107 MMOL/L (98-107); CREATININE FOR GFR 0.91 MG/DL (0.70-1.30); GLOMERULAR FILTRATION RATE > 90.0 (>42); POTASSIUM SERUM 4.3 MMOL/L (3.5-5.1); SODIUM LEVEL 143 MMOL/L (136-145)
[2025-06-13 16:48] LABS: FREE T4 0.89 NG/DL (0.89-1.76)
[2025-06-13 16:51] LABS: CPK CREATINE PHOSPHOKINASE 111 U/L (46-171); MB/CK RELATIVE INDEX 3.06 (< OR =4)
[2025-06-13 18:10] LABS: CK-MB VALUE MASS 3.0 NG/ML (<3.6)
[2025-06-13 18:16] LABS: CPK CREATINE PHOSPHOKINASE 103.0 U/L (46-171); MB/CK RELATIVE INDEX 2.91 (< OR =4)
[2025-06-13] MEDS ORDERED: ISOVUE-370 76% 100 ML VIAL As Ordered ONE (18:39)
[2025-06-13 19:02] VITALS: BP 146/72
[2025-06-13 19:17] VITALS: TEMP 98.1; O2SAT 97
== END 2025-06-13 19:18 | disposition home or self-care (01) ==
LOC: M ED 14:53 → EDBD 14:53 → M ED 19:18
DX: R07.9 Chest pain, unspecified (principal); R06.00 Dyspnea, unspecified; J43.8 Other emphysema; E78.5 Hyperlipidemia, unspecified; K21.9 Gastro-esophageal reflux disease without esophagitis; G47.33 Obstructive sleep apnea (adult) (pediatric); R94.31 Abnormal electrocardiogram [ECG] [EKG]; F41.9 Anxiety disorder, unspecified; F32.A Depression, unspecified; Z88.5 Allergy status to narcotic agent; Z79.899 Other long term (current) drug therapy
CPT/HCPCS: 36415; 71045; 71275; 80048; 80076; 82550; 82553; 83690; 83880; 84439; 84443; 84484; 85025; 93005; 93041; 94760; 99285; Q9967

== ENCOUNTER → 2025-07-22 | Outpatient (REF) | payer MEDICARE, BC ==
[2025-07-22 20:10] LABS: RSV AMPLIFICATION NEGATIVE (NEGATIVE)
== END ==
LOC: M SFHCCLAY 17:50
PROVIDERS: ATTEND Physician Assistant
DX: J02.9 Acute pharyngitis, unspecified (principal)

== ENCOUNTER → 2025-10-03 | Outpatient (CLI) | payer MEDICARE, BC ==
[~2025-10-03] MED LIST changes: +CHEL100T4 PO; +DULO1CAP6
== END ==
LOC: M RAD 16:00
PROVIDERS: ATTEND Physician Assistant
DX: R51.9 Headache, unspecified (principal)